=== PATIENT | male | born 1950 | race African-American/Black ===

== ENCOUNTER 2017-07-24 08:04 | Inpatient (IN) | payer OTHER ==
[2017-07-17 18:35] VITALS: BMI 28.5
[2017-07-24] MEDS ORDERED: CELECOXIB 200 MG CAPSULE PO ONE (09:12)
[2017-07-24] MEDS ORDERED: VANCOMYCIN 1,000 MG in DEXTROSE 5%-WATER - 250 ML IVPB ONE (09:12)
[2017-07-24] MEDS ORDERED: CEFAZOLIN 2 GM in DEXTROSE 5%-WATER - 50 ML IVPB ONE (09:12)
[2017-07-24] MEDS ORDERED: BUPIVACAINE HCL/PF (5 MG/ML) 30 ML VIAL IJ ONE (09:26)
[2017-07-24] MEDS ORDERED: MIDAZOLAM HCL 2 MG/2 ML SINGLE DOSE VIAL ONE ×2 (09:26→09:58)
[2017-07-24] MEDS ORDERED: CELECOXIB 200 MG CAPSULE ONE (09:44)
[2017-07-24] MEDS: CELECOXIB 200 MG CAPSULE PO ONE (09:50)
[2017-07-24] MEDS ORDERED: PROPOFOL 20 ML ONE ×3 (09:58)
[2017-07-24] MEDS ORDERED: fentaNYL CITRATE 250 MCG/5 ML VIAL ONE (10:39)
[2017-07-24] MEDS ORDERED: SUCCINYLCHOLINE CHLORIDE 200 MG/10 ML VIAL ONE (10:40)
[2017-07-24] MEDS ORDERED: ROCURONIUM BROMIDE 50 MG/5 ML VIAL ONE (10:40)
[2017-07-24] MEDS ORDERED: ePHEDrine SULFATE 50 MG/1 ML AMPULE ONE ×2 (11:08→12:22)
[2017-07-24] MEDS ORDERED: DEXAMETHASONE SOD PHOSPHATE 4 MG/1 ML VIAL ONE (11:09)
[2017-07-24] MEDS ORDERED: ceFAZolin SODIUM 1 GM VIAL ONE ×2 (11:09→12:32)
[2017-07-24] MEDS ORDERED: VANCOMYCIN 1,000 MG VIAL (RESTRICTED TO ID ONLY) ONE (11:09)
[2017-07-24] MEDS ORDERED: ONDANSETRON 4 MG/2 ML VIAL ONE (11:09)
[2017-07-24] MEDS ORDERED: LIDOCAINE HCL/PF 2% SDV 5ML VIAL ONE (11:09)
[2017-07-24] MEDS ORDERED: SODIUM CHLORIDE 0.9% P/F 10 ML VIAL IJ ONE (12:32)
[2017-07-24] MEDS ORDERED: BENZOIN/ALOE VERA/STORAX/TOLU 58 ML BOTTLE ONE (13:11)
--- NOTE | 2017-07-24 13:25 | OP ---
Operative Note - Note: Operative Date: 07/24/17 Pre-Operative Diagnosis: Left hip DJD Operation: Left DRAKE Implants: Nancy. Cup - Tritanium, 62mm, cluster hole; 2 x acetabular screws ( 25mm). Poly - 28mm, neutral. Stem - Secure Fit Advanced, #7, 127 deg NSA ( high offset). Head - Biolox/Delta Ceramic 28mm, +4 Post-Operative Diagnosis: Same as Pre-op Surgeon: Lalit Alcantara [employer] Technician: Jericho Alcantara Anesthesiologist/ACADEMIC DIRECTOR: Alphonse Arreguin Anesthesia: Spinal Specimens Removed: Left femoral head Estimated Blood Loss (mls): 150 Drains & Tubes with Location: 1 x superficial HemoVac Fluid Volume Replaced (mls): 1,000 Operative Report Dictated: Yes
--- NOTE | 2017-07-24 13:29 | PN ---
Progress Note (short form) - Note Progress Note: 67M s/p L DRAKE POD #0. -Pain control. -DVT PPx: -Chemical: ASA 81mg PO BID x 6 weeks. -Mechanical: HE's, SCD's. -Incentive spirometry. -PT/OT/Rehab, OOB. -WBAT LLE. -Posterior L hip precautions. -f/u drain output. -f/u AM labs. -f/u post-op TOV. -Hip abduction pillow. -Care per medical hospitalist team. -Discharge planning: f/u [facility] office 08/01/2017. Call for appointment: . -Will follow. Lalit Alcantara MD (Orthopaedic Surgery).
[2017-07-24] MEDS ORDERED: MAGNESIUM HYDROX 2400MG/30ML ORAL SUSPENSION 30 ML CUP PO PRN (13:31)
[2017-07-24] MEDS ORDERED: MAG HYDROX/AL HYDROX/SIMETH 30 ML UNIT-DOSE CUP PO PRN (13:31)
[2017-07-24] MEDS ORDERED: ONDANSETRON 4 MG/2 ML VIAL IVPUSH PRN ×2 (13:31→13:55)
[2017-07-24] MEDS ORDERED: LACTATED RINGERS SOLUTION 1,000 ML IV SCH (13:45)
[2017-07-24] MEDS ORDERED: PROMETHAZINE HCL 25 MG/1 ML VIAL IVPB PRN (13:55)
[2017-07-24] MEDS ORDERED: oxyCODONE HCL 5 MG TABLET PO PRN (13:55)
[2017-07-24] MEDS ORDERED: DOMPERIDONE PO SCH (14:00)
[2017-07-24] MEDS: ACETAMINOPHEN 325 MG TABLET (FP) PO SCH ×2 (15:10→20:00)
[2017-07-24] MEDS: oxyCODONE HCL 5 MG TABLET PO PRN ×2 (18:30→21:35)
--- NOTE | 2017-07-24 19:25 | OP ---
DATE OF OPERATION: 07/24/2017 PREOPERATIVE DIAGNOSIS: Osteoarthritis left hip with fixed direction deformity and retroverted pelvis. POSTOPERATIVE DIAGNOSIS: Osteoarthritis left hip with fixed direction deformity and retroverted pelvis. OPERATION PERFORMED: Left total hip replacement. SURGEON: Lalit Alcantara M.D. COLD PRESS LOADER: Jericho Alcantara M.D., and Rubens Barrera ANESTHESIA: General with antibiotics: 2 g Kefzol, 1 g vancomycin; 1 g Kefzol given at the time of seating of the femoral component. BLOOD LOSS: Approximately 300 mL. OPERATION IN DETAIL: With the patient in the supine position, the left lower extremity was prepped, predraped in the routine manner with Betadine scrub solution. A timeout was called. Imaging was available for intraoperative evaluation. The hip was opened with the routine lateral incision extended over greater trochanter, lining up to a line vertically drawn from the anterior superior spine to about 3 inches distal to the trochanteric ridge. The fascia was opened. Charnley retractors were placed subfascially, hemostasis achieved along the way. Using an anterior biased direct lateral approach, about 2 cm of the anterior fibers of the gluteus medius were split and lifted off the anterior aspect of the trochanter toward the capsule. The capsule was incised from superolateral to inferomedially, 2 radial incisions made in the anterior capsule, and then I elected to excise the anterior capsule, because of its original contracture. A very contracted external rotators as well as Psoas major tendon were all released. This achieved an improvement for the significant fixed direction deformity which measured approximately 30 degrees under general anesthesia. The acetabulum was exposed with an anterior, posterior, inferior and superior retractor. The labrum was resected. Reaming was to size 61, and a size 62 Tritanium cup was inserted. It must be noted that the seating of the cup was inserted in accord with the vertical sagittal axis. The retroverted patella meant that the acetabulum was markedly anteverted, and the seating of the cup necessitated resection of the posterior aspect of the bone bed of the cup toward the cartilaginous notch, and to the level of the obturator foramen. The cup was Press-Fit was solid, but we elected to seat 2 screws for additional fixation. The cup liner was a 28-mm polyethylene liner. The cup was placed in about 5 degrees of anteversion and closed. Once this had been achieved, the hip was abducted, externally rotated. The hip abductor was held out of harm's way by seating a sharp Jesus between the trochanter and the muscle. The box cut was utilized to gain entry to the trochanter. The trochanter was using this entry point. The intramedullary canal was opened using the canal finder. Broaching was then performed to size 7 and the size 7 secure fit advanced 127-degree femoral component inserted ([place]), and a 28-mm plus 4 ceramic head applied to the trunnion, this gave equal leg length on the table, and marked improvement in the fixed direction deformity and the articulation. The wounds were thoroughly lavaged with pulse lavage. Closure was as follows. Hip abductor muscle with number 1 Vicryl, fascia 1 Vicryl, subcutaneous 1 and 2-0 Vicryl, skin 3-0 Monocryl, Steri-Strips, one 8-inch Hemovac drain inserted. This completed a 25- cm complex wound closure because of the 4 layers. No complications. Postoperative x-rays were excellent. MD MAIKEL Joyce/[id number] RUBEN
[2017-07-24] MEDS ORDERED: ASPIRIN 81 MG CHEWABLE TABLETS ONE (21:14)
[2017-07-24] MEDS: SENNOSIDES/DOCUSATE COMBO (SENNA PLUS) TABLET (UD) PO SCH (21:19)
[2017-07-24] MEDS: ASPIRIN 325 MG TABLET PO SCH (21:19)
[2017-07-24] MEDS: CEFAZOLIN 2 GM/D5W 2 GM/50 ML ML IVPB SCH (21:20)
[2017-07-24] MEDS: oxyCODONE HCL 10 MG SUSTAINED ACTING TABLET PO SCH (21:20)
[2017-07-24] MEDS: GABAPENTIN 300 MG CAPSULE (FP) PO SCH (21:20)
[2017-07-24] MEDS: BACLOFEN 10 MG TABLET (FP) PO SCH (21:20)
[2017-07-24] MEDS: clonazePAM 2 MG TABLET PO SCH (21:20)
[2017-07-24] MEDS ORDERED: PREGABALIN 50 MG CAPSULE PO SCH (22:00)
[2017-07-25] MEDS: ACETAMINOPHEN 325 MG TABLET (FP) PO SCH ×4 (02:00→21:33)
[2017-07-25] MEDS: CEFAZOLIN 2 GM/D5W 2 GM/50 ML ML IVPB SCH (05:25)
[2017-07-25] MEDS: oxyCODONE HCL 5 MG TABLET PO PRN ×4 (05:25→21:33)
[2017-07-25] MEDS: LEVOTHYROXINE NA 50 MCG TABLET (FP) PO SCH (06:09)
[2017-07-25] MEDS: CELECOXIB 200 MG CAPSULE PO ONE (07:47)
[2017-07-25 08:25] LABS: HEMOGLOBIN 10.3 GM/dl (11.7-16.9); MCH 30.2 pg (25.7-33.7); MCHC 33.2 g/dl (32.0-35.9); MEAN PLT VOLUME 8.1 fl (7.5-11.1); PLATELET COUNT 235 K/MM3 (134-434); RDW 13.8 % (11.9-15.9); WHITE BLOOD COUNT 5.9 K/mm3 (4.0-10.8)
[2017-07-25 08:30] LABS: ANION GAP 7 (8-16); BLOOD UREA NITROGEN 11 mg/dl (7-18); CALCIUM 8.2 mg/dl (8.4-10.2); CHLORIDE 103 mmol/L (98-107); CO2 28 mmol/L (22-28); CREATININE 0.8 mg/dl (0.6-1.3); GLUCOSE,RANDOM 111 mg/dl (74-106); POTASSIUM 4.3 mmol/L (3.5-5.1); SODIUM 138 mmol/L (136-145)
[2017-07-25] MEDS: TAMSULOSIN HCL 0.4 MG CAP.ER.24H (FP) PO SCH (09:21)
[2017-07-25] MEDS: clonazePAM 2 MG TABLET PO SCH ×2 (09:22→21:34)
[2017-07-25] MEDS: BACLOFEN 10 MG TABLET (FP) PO SCH ×2 (09:23→21:34)
[2017-07-25] MEDS: GABAPENTIN 300 MG CAPSULE (FP) PO SCH ×2 (09:25→21:34)
[2017-07-25] MEDS: oxyCODONE HCL 10 MG SUSTAINED ACTING TABLET PO SCH ×2 (09:25→21:33)
[2017-07-25] MEDS: SENNOSIDES/DOCUSATE COMBO (SENNA PLUS) TABLET (UD) PO SCH ×2 (09:26→21:34)
[2017-07-25] MEDS: PANTOPRAZOLE 40 MG TABLET (FP) PO SCH (09:27)
[2017-07-25] MEDS: LISINOPRIL 10 MG TABLET (FP) PO SCH (09:27)
[2017-07-25] MEDS: ASPIRIN 325 MG TABLET PO SCH ×2 (09:30→21:34)
[2017-07-25] MEDS ORDERED: PATIENT'S OWN MEDICATION (NON-FORMULARY) (Dexlansoprazole [Dexilant] 60 MG) PO SCH (10:00)
[2017-07-25] MEDS ORDERED: PATIENT'S OWN MEDICATION (NON-FORMULARY) (Linaclotide [Linzess] 290 MCG) PO SCH (10:00)
--- NOTE | 2017-07-25 10:39 | CONSULT ---
Consultation: REQUESTING PROVIDER: Dr Alcantara CONSULT REQUEST: We have been asked to medically evaluate this patient for medical management. HISTORY OF PRESENT ILLNESS:patient is a 67-year-old male, with a past medical history of BPH, irritable syndrome, pulmonary embolism (IVC filter), osteoarthritis, hypothyroidism, hypertension, GERD, depression, anxiety, and chronic back pain. Patient is status post left total hip replacement general anesthesia Dr. Alcantara REVIEW OF SYSTEMS: CONSTITUTIONAL: Absent: fever, chills, diaphoresis, generalized weakness, malaise, loss of appetite, weight change HEENT: Absent: rhinorrhea, nasal congestion, throat pain, throat swelling, difficulty swallowing, mouth swelling, ear pain, eye pain, visual changes CARDIOVASCULAR: Absent: chest pain, syncope, palpitations, irregular heart rate, lightheadedness , peripheral edema RESPIRATORY: Absent: cough, shortness of breath, dyspnea with exertion, orthopnea, wheezing, stridor, hemoptysis GASTROINTESTINAL: Absent: abdominal pain, abdominal distension, nausea, vomiting, diarrhea, constipation, melena, hematochezia GENITOURINARY: Absent: dysuria, frequency, urgency, hesitancy, hematuria, flank pain, genital pain MUSCULOSKELETAL: Present: left hip pain Absent: myalgia, arthralgia, joint swelling, back pain, neck pain SKIN: Absent: rash, itching, pallor HEMATOLOGIC/IMMUNOLOGIC: Absent: easy bleeding, easy bruising, lymphadenopathy, frequent infections ENDOCRINE: Absent: unexplained weight gain, unexplained weight loss, heat intolerance, cold intolerance NEUROLOGIC: Absent: headache, focal weakness or paresthesias, dizziness, unsteady gait, seizure, mental status changes, bladder or bowel incontinence PSYCHIATRIC: Absent: anxiety, depression, suicidal or homicidal ideation, hallucinations. PHYSICAL EXAMINATION Vital Signs - 24 hr 07/24/17 07/24/17 07/24/17 13:49 13:55 14:00 Temperature 98.1 F Pulse Rate 107 H 92 H 86 Respiratory 16 18 18 Rate Blood Pressure 126/93 126/72 121/66 O2 Sat by Pulse 98 98 9 L Oximetry (%) 07/24/17 07/24/17 07/24/17 14:05 14:20 14:35 Temperature Pulse Rate 86 80 70 Respiratory 20 20 20 Rate Blood Pressure 120/71 129/64 127/60 O2 Sat by Pulse 98 97 99 Oximetry (%) 05/07/24/17 07/24/17 14:50 15:05 20:31 Temperature Pulse Rate 73 77 Respiratory 20 20 20 Rate Blood Pressure 121/63 119/60 O2 Sat by Pulse 98 98 Oximetry (%) 07/24/17 07/25/17 07/25/17 21:45 06:20 08:18 Temperature 98.5 F 97.9 F Pulse Rate 82 71 Respiratory 17 18 Rate Blood Pressure 120/68 132/71 O2 Sat by Pulse 100 99 99 Oximetry (%) GENERAL: Awake, alert, and fully oriented, in no acute distress. HEAD: Normal with no signs of trauma. EYES: Pupils equal, round and reactive to light, extraocular movements intact, sclera anicteric, conjunctiva clear. No lid lag. EARS, NOSE, THROAT: Ears normal, nares patent, oropharynx clear without exudates. Moist mucous membranes. NECK: Normal range of motion, supple without lymphadenopathy, JVD, or masses. LUNGS: Breath sounds equal, clear to auscultation bilaterally. No wheezes, and no crackles. No accessory muscle use. HEART: Regular rate and rhythm, normal S1 and S2 without murmur, rub or gallop. ABDOMEN: Soft, nontender, not distended, normoactive bowel sounds, no guarding, no rebound, no masses. No hepatomegaly or splenomegaly. : Mckeon draining clear yellow urine MUSCULOSKELETAL: Normal range of motion at all joints. No bony deformities or tenderness. No CVA tenderness. UPPER EXTREMITIES: 2+ pulses, warm, well-perfused. No cyanosis. No clubbing. Cap refill <2 seconds. No peripheral edema. LOWER EXTREMITIES: 2+ pulses, warm, well-perfused. No calf tenderness. No peripheral edema. LEFT LOWER EXTREMITY: dressing CDI, less than 3 second capillary refill +3 pedal pulse SCDs/Jaquan's intact, Hemovac draining scant sanguinous drainage NEUROLOGICAL: Cranial nerves II-XII intact. Normal speech. Normal gait. PSYCHIATRIC: Cooperative. Good eye contact. Appropriate mood and affect. SKIN: Warm, dry, normal turgor, no rashes or lesions noted. Laboratory Results - last 24 hr 07/25/17 07/25/17 07:25 07:25 WBC 5.9 RBC 3.40 L Hgb 10.3 L Hct 31.0 L MCV 91.0 MCH 30.2 MCHC 33.2 RDW 13.8 Plt Count 235 MPV 8.1 Sodium 138 Potassium 4.3 Chloride 103 Carbon Dioxide 28 Anion Gap 7 L BUN 11 Creatinine 0.8 Random Glucose 111 H Calcium 8.2 L Active Medications Generic Name Dose Route Start Last Admin Trade Name Freq PRN Reason Stop Dose Admin Acetaminophen 650 mg 07/24/17 14:00 07/25/17 09:21 Tylenol - PO 07/27/17 13:59 Not Given Q6H RADHA Al Hydroxide/Mg Hydroxide 30 ml 07/24/17 13:31 Mylanta Oral Suspension - PO Q4H PRN DYSPEPSIA Aspirin 81 mg 07/24/17 22:00 07/25/17 09:30 Asa - PO 81 mg BID RADHA Administration Baclofen 10 mg 07/24/17 22:00 07/25/17 09:23 Lioresal - PO 10 mg BID RADHA Administration Clonazepam 2 mg 07/24/17 22:00 07/25/17 09:22 Klonopin - PO 1 mg BID RADHA Administration Fentanyl 50 mcg 07/24/17 13:55 07/24/17 14:15 Sublimaze Injection - IVPUSH 50 mcg [id number] PRN Administration PAIN-PACU ORDER X 4 DOSES ONLY Gabapentin 300 mg 07/24/17 22:00 07/25/17 09:25 Neurontin - PO Not Given BID [facility] Levothyroxine Sodium 50 mcg 07/25/17 07:00 07/25/17 06:09 Synthroid - PO 50 mcg AM RADHA Administration Lisinopril 10 mg 07/25/17 10:00 07/25/17 09:27 Prinivil PO 10 mg DAILY RADHA Administration Magnesium Hydroxide 30 ml 07/24/17 13:31 Milk Of Magnesia - PO PRN PRN CONSTIPATION Non-Formulary Medication 60 mg 07/25/17 10:00 Dexlansoprazole [Dexilant] PO DAILY RAHDA Non-Formulary Medication 2 mg 07/24/17 14:00 Domperidone PO TID RADHA Non-Formulary Medication 290 mcg 07/25/17 10:00 Linaclotide [Linzess] PO DAILY RADHA Non-Formulary Medication 150 mg 07/24/17 14:00 Methylnaltrexone Phillips [Relistor] PO TID RADHA Ondansetron HCl 4 mg 07/24/17 13:31 Zofran Injection IVPUSH Q6H PRN NAUSEA Ondansetron HCl 4 mg 07/24/17 13:55 07/24/17 14:20 Zofran Injection IVPUSH 4 mg Q6H PRN Administration NAUSEA AND/OR VOMITING Oxycodone HCl 5 mg 07/24/17 13:55 07/24/17 15:10 Roxicodone - PO 5 mg Q3H PRN Administration PAIN LEVEL 1-5 Oxycodone HCl 10 mg 07/24/17 13:55 07/25/17 09:28 Roxicodone - PO 10 mg Q3H PRN Administration PAIN LEVEL 6-10 Oxycodone HCl 10 mg 07/24/17 22:00 07/25/17 09:25 Oxycontin - PO 07/27/17 13:56 10 mg BID RADHA Administration Pantoprazole Sodium 40 mg 07/25/17 10:00 07/25/17 09:27 Protonix - PO 40 mg DAILY RADHA Administration Pregabalin 50 mg 07/24/17 22:00 Lyrica - PO BID RADHA Promethazine HCl 12.5 mg 07/24/17 13:55 Phenergan Injection - IVPB Q6H PRN NAUSEA-FOR RESCUE AFTER 15 MIN Senna/Docusate Sodium 1 tablet 07/24/17 22:00 07/25/17 09:26 Pericolace - PO Not Given BID RADHA Tamsulosin HCl 0.4 mg 07/25/17 08:30 07/25/17 09:21 Flomax - PO 0.4 mg DAILY@0830 RADHA Administration ASSESSMENT/PLAN: 1) MS S/P left total hip replacement, Postoperative day 1 - Physical therapy as per orthopedist Dr. Alcantara - When necessary pain medication - Strict monitoring of hemoglobin 2) cardiovascular hypertension - [id number]/06/2018 no evidence of reversible myocardial ischemia noted - no home medications close monitoring of blood pressure advise every 4 hours 3) BPH - Patient reports he was evaluated by urologist preoperatively PSA is WNL as per patient,patient reports a history of urinary retention in the past after surgery, advise discontinuing Mckoen starting voiding trial - continue flomax 4) endo hypothyroidism - continue levothyroxine home dose 5) gI IBS - continue linzess (pt to bring in home medication) Dispo: We will continue to follow the patient. Thank you for this consultative opportunity. Visit type - Emergency Visit Emergency Visit: No - New Patient This patient is new to me today: Yes Date on this admission: 07/25/17 - Critical Care Critical Care patient: No
--- NOTE | 2017-07-25 10:55 | PN ---
Progress Note, Physician Chief Complaint: s/o left hip arthorplasty under general anesthesia post op day one. History of Present Illness: paravertebral nerve block for post op pain - Current Medication List Current Medications: Active Medications Acetaminophen (Tylenol -) 650 mg PO Q6H [facility] Stop: 07/27/17 13:59 Last Admin: 07/25/17 09:21 Dose: Not Given Al Hydroxide/Mg Hydroxide (Mylanta Oral Suspension -) 30 ml PO Q4H PRN PRN Reason: DYSPEPSIA Aspirin (Asa -) 81 mg PO BID [facility] Last Admin: 07/25/17 09:30 Dose: 81 mg Baclofen (Lioresal -) 10 mg PO BID [facility] Last Admin: 07/25/17 09:23 Dose: 10 mg Clonazepam (Klonopin -) 2 mg PO BID [facility] Last Admin: 07/25/17 09:22 Dose: 1 mg Fentanyl (Sublimaze Injection -) 50 mcg IVPUSH [id number] PRN PRN Reason: PAIN-PACU ORDER X 4 DOSES ONLY Last Admin: 07/24/17 14:15 Dose: 50 mcg Gabapentin (Neurontin -) 300 mg PO BID [facility] Last Admin: 07/25/17 09:25 Dose: Not Given Levothyroxine Sodium (Synthroid -) 50 mcg PO AM [facility] Last Admin: 07/25/17 06:09 Dose: 50 mcg Lisinopril (Prinivil) 10 mg PO DAILY [facility] Last Admin: 07/25/17 09:27 Dose: 10 mg Magnesium Hydroxide (Milk Of Magnesia -) 30 ml PO PRN PRN PRN Reason: CONSTIPATION Non-Formulary Medication (Dexlansoprazole [Dexilant]) 60 mg PO DAILY [facility] Non-Formulary Medication (Domperidone) 2 mg PO TID [facility] Non-Formulary Medication (Linaclotide [Linzess]) 290 mcg PO DAILY [facility] Non-Formulary Medication (Methylnaltrexone [place] [Relistor]) 150 mg PO TID [facility] Ondansetron HCl (Zofran Injection) 4 mg IVPUSH Q6H PRN PRN Reason: NAUSEA Ondansetron HCl (Zofran Injection) 4 mg IVPUSH Q6H PRN PRN Reason: NAUSEA AND/OR VOMITING Last Admin: 07/24/17 14:20 Dose: 4 mg Oxycodone HCl (Roxicodone -) 5 mg PO Q3H PRN PRN Reason: PAIN LEVEL 1-5 Last Admin: 07/24/17 15:10 Dose: 5 mg Oxycodone HCl (Roxicodone -) 10 mg PO Q3H PRN PRN Reason: PAIN LEVEL 6-10 Last Admin: 07/25/17 09:28 Dose: 10 mg Oxycodone HCl (Oxycontin -) 10 mg PO BID [facility] Stop: 07/27/17 13:56 Last Admin: 07/25/17 09:25 Dose: 10 mg Pantoprazole Sodium (Protonix -) 40 mg PO DAILY [facility] Last Admin: 07/25/17 09:27 Dose: 40 mg Pregabalin (Lyrica -) 50 mg PO BID [facility] Promethazine HCl (Phenergan Injection -) 12.5 mg IVPB Q6H PRN PRN Reason: NAUSEA-FOR RESCUE AFTER 15 MIN Senna/Docusate Sodium (Pericolace -) 1 tablet PO BID [facility] Last Admin: 07/25/17 09:26 Dose: Not Given Tamsulosin HCl (Flomax -) 0.4 mg PO DAILY@0830 [facility] Last Admin: 07/25/17 09:21 Dose: 0.4 mg - Objective Vital Signs: Vital Signs Temperature 97.9 F 07/25/17 06:20 Pulse Rate 71 07/25/17 06:20 Respiratory Rate 18 07/25/17 06:20 Blood Pressure 132/71 07/25/17 06:20 O2 Sat by Pulse Oximetry (%) 99 07/25/17 08:18 Constitutional: Yes: Well Nourished Cardiovascular: Yes: WNL Respiratory: Yes: WNL Gastrointestinal: Yes: WNL Labs: CBC, BMP 07/25/17 07:25 07/25/17 07:25 Assessment/Plan Patient was in pain during physical therapy, received oral analgesics, no nausea or vomiting, no complaints about anesthesia. Advised patient to ask for pain medication early to mitigate escalating pain. Dept of anesthesia will sign off care at this time.
--- NOTE | 2017-07-25 17:51 | PN ---
Progress Note (short form) - Note Progress Note: POD#1 Pt without complaints this am, oob to chair. No CP/SOB. Vital Signs Period Temp Pulse Resp BP Sys/Brar Pulse Ox Last 24 Hr 97.9 F-98.5 F 71-82 17-20 120-136/64-71 97-100 [id number] Mckeon-clear/yellow urine-1300ml GEN: A&0x3, NAD CV: RRR Lungs:CTA b/l anteriorly Left hip: dressing c/d/i LE: b/l +2 dp pulse, dorsi/plantar flexion 5/5. CBC, BMP // 07:25 05//18 07:25 A/p: 67 yo male s/p left THR, POD#1 Plan for oob to chair/ambulate with PT Mckeon to be removed for TOV Diet as tolerated DVT ppx with SCDs/aspirin 81 mg BID D/w Dr. Alcantara
[2017-07-25] MEDS ORDERED: ASPIRIN 81 MG CHEWABLE TABLETS ONE (21:24)
[2017-07-25] MEDS: PREGABALIN 50 MG CAPSULE PO SCH (21:34)
[2017-07-26] MEDS: oxyCODONE HCL 5 MG TABLET PO PRN ×3 (00:20→12:48)
[2017-07-26] MEDS: ACETAMINOPHEN 325 MG TABLET (FP) PO SCH ×3 (04:51→14:43)
[2017-07-26] MEDS: LEVOTHYROXINE NA 50 MCG TABLET (FP) PO SCH (05:59)
[2017-07-26] MEDS: TAMSULOSIN HCL 0.4 MG CAP.ER.24H (FP) PO SCH (08:45)
[2017-07-26] MEDS ORDERED: PT OWN MED DRAWER 7, Y5N ONE (09:45)
[2017-07-26] MEDS: BACLOFEN 10 MG TABLET (FP) PO SCH (09:48)
[2017-07-26] MEDS: oxyCODONE HCL 10 MG SUSTAINED ACTING TABLET PO SCH (09:48)
[2017-07-26] MEDS: ASPIRIN 325 MG TABLET PO SCH (09:49)
[2017-07-26] MEDS: clonazePAM 2 MG TABLET PO SCH (09:49)
[2017-07-26] MEDS: LISINOPRIL 10 MG TABLET (FP) PO SCH (09:50)
[2017-07-26] MEDS: PREGABALIN 50 MG CAPSULE PO SCH (09:50)
[2017-07-26] MEDS: SENNOSIDES/DOCUSATE COMBO (SENNA PLUS) TABLET (UD) PO SCH (09:50)
[2017-07-26] MEDS: GABAPENTIN 300 MG CAPSULE (FP) PO SCH (09:50)
[2017-07-26 09:51] LABS: HEMATOCRIT 29.1 % (35.4-49); HEMOGLOBIN 9.7 GM/dl (11.7-16.9); MCH 29.9 pg (25.7-33.7); MCHC 33.3 g/dl (32.0-35.9); MEAN CELL VOLUME 89.7 fl (80-96); MEAN PLT VOLUME 8.9 fl (7.5-11.1); PLATELET COUNT 222 K/MM3 (134-434); RBC 3.24 M/mm3 (4.00-5.60); RDW 13.6 % (11.9-15.9); WHITE BLOOD COUNT 11.5 K/mm3 (4.0-10.8)
[2017-07-26] MEDS: PANTOPRAZOLE 40 MG TABLET (FP) PO SCH (09:51)
[2017-07-26] MEDS ORDERED: METHYLNALTREXONE BROMIDE 450 MG PO SCH (10:00)
[2017-07-26 14:17] VITALS: BP 112/52; PULSE 84; TEMP 98.4
--- NOTE | 2017-07-26 17:24 | PATH ---
Surgical Pathology Report Patient Name: NICK BYRNES Med. Rec. #: [id number] /Age/Gender: 1950 (Age: 67) / M Account: [id number] Location: [facility] MED-SURG Taken: 07/24/2017 Received: 07/24/2017 Reported: 07/26/2017 Physicians: Lalit Alcantara M.D. Specimen(s) Received LEFT FEMORAL HEAD Clinical History Left hip osteoarthritis Final Diagnosis BONE, FEMORAL HEAD, LEFT, ARTHROPLASTY: BONE WITH DEGENERATIVE JOINT DISEASE. Electronically Signed Arely Wilkerson M.D. Gross Description Received in formalin, labeled "left femoral head," is a 5.3 x 5.3 x 5.0 cm. femoral head with a 2 cm in length portion of femoral neck attached. The margin of resection is smooth. No areas of eburnation are identified. The articular surface is vieyra-yellow and focally granular. The underlying trabecular bone is yellow and hard. A business representative section is submitted in one cassette, following decalcification. 07/25/2017 [facility]07/25/2017
--- NOTE | 2017-07-26 17:50 | DS ---
"Physical Exam: SUBJECTIVE: Patient seen and examined. He is walking with PT. Has mild pain with ambulation. Drain pulled today. OBJECTIVE: Vital Signs Period Temp Pulse Resp BP Sys/Brar Pulse Ox Last 24 Hr 98.2 F-98.4 F 84-85 18-18 112-163/45-52 94-100 PE Neuro: alert, awake, cn 2-12intact Pulm: CTAB CV: s1 s2 rrr no mrg Abd: s nt nd +bs Ext: warm, L hip dressing, mild drainage post drain pull Laboratory Results - last 24 hr 07/26/17 08:25 WBC 11.5 H D RBC 3.24 L Hgb 9.7 L Hct 29.1 L MCV 89.7 MCH 29.9 MCHC 33.3 RDW 13.6 Plt Count 222 MPV 8.9 HOSPITAL COURSE: Date of Admission:07/24/17 Date of Discharge: 07/26/17 Minutes to complete discharge: 37 Discharge Summary Hospital Course: Hospital Course: Briefly, 67 year old male with pmhx BPH, irritable syndrome, pulmonary embolism (IVC filter), osteoarthritis, hypothyroidism, hypertension, GERD, depression, anxiety, and chronic back pain admitted status post left total hip replacement 07/24. Subsequent Hospital Course/ DC summary: Plan: 1. S/P left total hip replacement, - Ambulating with PT daily w walker - Outpt appt with Ortho next week - ASA BID x6 weeks 2. HTN - Lisinopril 10mg daily 3. BPH - continue flomax 4. Hypothyroidism - Synthroid 50mcg daily 5. IBS - continue linzess (pt to bring in home medication) Dispo: - Home w/ above meds and follow up Condition: Stable - Instructions Diet, Activity, Other Instructions: This report was requested by: Aileen Bradford | Reference #: [id number] 07/05/2017 07/05/2017 clonazepam 2 mg tablet 60 30 Lalit Alcantara MS, MD 07/05/2017 07/05/2017 oxycodone hcl 30 mg tablet 120 30 Lalit Alcantara MS, MD Post-op instructions: Keep the dressing on until removed by Dr. Alcantara next week. No baths. You have a follow up appointment on 08/01, Call the to verify your appointment time [phone] Take one Aspirin 81mg every 12 hours for the next 6 weeks to prevent blood clots in your legs. Posterior Hip Precautions: Do not cross legs, Do not sit on low chair or toilets Referrals: Jericho Alcantara MD [Staff Physician] - Disposition: VNS/HOME HEALTH CARE - Home Medications Comprehensive Discharge Medication List: Ambulatory Orders Baclofen 10 mg PO BID 07/17/17 Bisacodyl [Dulcolax] 15 mg PO DAILY 07/17/17 Clonazepam [Klonopin] 2 mg PO BID 07/17/17 Dexlansoprazole [Dexilant] 60 mg PO DAILY 07/17/17 Domperidone 2 mg PO TID 07/17/17 Gabapentin [Neurontin] 600 mg PO TID 07/17/17 Levothyroxine [Synthroid -] 50 mcg PO DAILY 07/17/17 Linaclotide [Linzess] 290 mcg PO DAILY 07/17/17 Lisinopril 10 mg PO DAILY 07/17/17 Methylnaltrexone Gates [Relistor] 150 mg PO TID 07/17/17 Oxycodone HCl 30 mg PO TID 07/17/17 Pregabalin [Lyrica -] 50 mg PO BID 07/17/17 Tamsulosin HCl 0.4 mg PO DAILY 07/17/17 Aspirin [ASA -] 81 mg PO BID #90 tab.chew 07/26/17 This patient is new to me today: Yes Date on this admission: 07/26/17 Emergency Visit: Yes ED Registration Date: 07/24/17 Care time: The patient presented to the Emergency Department on the above date and was hospitalized for further evaluation of their emergent condition. Critical Care patient: No - Discharge Referral Referred to [facility] Med P.C.: No"
== END 2017-07-26 15:00 | disposition home health service (06) | DRG 470 ==
LOC: FM/S 08:04
PROVIDERS: ADMIT Orthopaedic Surgery Orthopaedic Surgery of the Spine; ATTEND Orthopaedic Surgery Orthopaedic Surgery of the Spine
PROC: 0SRB03A Replacement of Left Hip Joint with Ceramic Synthetic Substitute, Uncemented, Open Approach (ICD-10-PCS; principal; 2017-07-24 10:15)
DX: M16.12 Unilateral primary osteoarthritis, left hip (principal); N40.0 Benign prostatic hyperplasia without lower urinary tract symptoms; E03.9 Hypothyroidism, unspecified; I10 Essential (primary) hypertension; K21.9 Gastro-esophageal reflux disease without esophagitis; K58.9 Irritable bowel syndrome, unspecified
CPT/HCPCS: 36415; 73502-TC-LT-FY; 80048; 85027; 88304-TC; 88311-TC; 94760; 97116-GP; 97162-GP; J0475

== ENCOUNTER 2017-12-25 08:26 | Inpatient (IN) | payer OTHER ==
[2017-12-18 13:52] VITALS: BMI 24.6
[2017-12-25] MEDS ORDERED: ONDANSETRON 4 MG/2 ML VIAL ONE (09:14)
[2017-12-25] MEDS ORDERED: DEXAMETHASONE SOD PHOSPHATE 4 MG/1 ML VIAL ONE (09:14)
[2017-12-25] MEDS ORDERED: SODIUM CHLORIDE 0.9% P/F 10 ML VIAL IJ ONE ×2 (09:14→09:56)
[2017-12-25] MEDS ORDERED: ceFAZolin SODIUM 1 GM VIAL ONE (09:14)
[2017-12-25] MEDS ORDERED: PROPOFOL 20 ML ONE ×4 (09:18→15:02)
[2017-12-25] MEDS ORDERED: MIDAZOLAM HCL 2 MG/2 ML SINGLE DOSE VIAL ONE ×3 (09:20→11:05)
[2017-12-25] MEDS ORDERED: BUPIVACAINE HCL/PF (5 MG/ML) 30 ML VIAL IJ ONE (09:51)
[2017-12-25] MEDS ORDERED: DEXAMETHASONE SOD PHOSPHATE/PF 10 MG/ML SDV ONE (09:51)
[2017-12-25] MEDS ORDERED: LIDOCAINE 1% P/F 10 MG/ML VIAL ONE (09:52)
[2017-12-25] MEDS ORDERED: EPINEPHrine/PF 1 MG/1 ML (1:1,000) AMPULE ONE (09:55)
[2017-12-25] MEDS ORDERED: KETOROLAC TROMETHAMINE 60 MG/2 ML VIAL ONE (09:55)
[2017-12-25] MEDS ORDERED: BUPIVACAINE HCL/PF 2.5 MG/ML - 30 ML VIAL IJ ONE (09:56)
[2017-12-25] MEDS ORDERED: morphine CARPU-JECT 10 MG/1 ML DISP.SYRIN ONE ×2 (09:56→14:19)
[2017-12-25] MEDS ORDERED: HEPARIN NA (PORCINE) 5,000 UNITS/ML 1ML VIAL ONE (10:09)
[2017-12-25] MEDS ORDERED: DEXMEDETOMIDINE HCL 200 MCG/2 ML ML IVPB ONE ×2 (10:50→14:18)
[2017-12-25] MEDS ORDERED: LIDOCAINE HCL/PF 2% SDV 5ML VIAL ONE (11:07)
[2017-12-25] MEDS ORDERED: ROCURONIUM BROMIDE 50 MG/5 ML VIAL ONE (11:07)
[2017-12-25] MEDS ORDERED: VANCOMYCIN 1 GRAM (PRE-DOCKED) 1,000 MG/250 ML BAG IVPB ONE (11:49)
[2017-12-25] MEDS ORDERED: CEFAZOLIN 2 GM/D5W 2 GM/50 ML ML IVPB ONE (11:49)
[2017-12-25] MEDS ORDERED: TRANEXAMIC ACID 1000 MG/10 ML VIAL IVPUSH ONE (11:51)
[2017-12-25] MEDS ORDERED: VANCOMYCIN 1,000 MG VIAL (RESTRICTED TO ID ONLY) ONE (12:03)
[2017-12-25] MEDS ORDERED: LACTATED RINGERS SOLUTION 1,000 ML IV SCH ×2 (13:15→15:30)
[2017-12-25] MEDS ORDERED: ACETAMINOPHEN 325 MG TABLET (FP) PO SCH (13:15)
[2017-12-25] MEDS ORDERED: ONDANSETRON 4 MG/2 ML VIAL IVPUSH PRN ×2 (13:15→15:19)
[2017-12-25] MEDS ORDERED: oxyCODONE HCL 5 MG TABLET PO PRN (13:18)
[2017-12-25] MEDS ORDERED: MAGNESIUM HYDROX 2400MG/30ML ORAL SUSPENSION 30 ML CUP PO PRN (15:19)
[2017-12-25] MEDS ORDERED: MAG HYDROX/AL HYDROX/SIMETH 30 ML UNIT-DOSE CUP PO PRN (15:19)
[2017-12-25] MEDS ORDERED: ePHEDrine SULFATE 50 MG/1 ML AMPULE ONE (15:35)
--- NOTE | 2017-12-25 15:35 | OP ---
Operative Note - Note: Operative Date: 12/25/17 Pre-Operative Diagnosis: Left DRAKE stem subsidence Operation: Revision left total hip replacement (acetabular and femoral components) Post-Operative Diagnosis: Same as Pre-op Surgeon: Lalit Alcantara Retirement Consultant: Aileen Bradford Anesthesiologist/EMPLOYMENT CONSULTANT: Renetta Parker Anesthesia: Spinal Specimens Removed: Left acetabular polyethylene liner. Left femoral stem & head Estimated Blood Loss (mls): 1,350 Drains & Tubes with Location: 1 x deep HemoVac Blood Volume Replaced (mls): 500 (Cell Saver) Fluid Volume Replaced (mls): 2,500 (Crystalloid) Operative Report Dictated: Yes
--- NOTE | 2017-12-25 15:40 | PN ---
Progress Note (short form) - Note Progress Note: 67M s/p revision LEFT DRAKE POD #0. -Pain control. -DVT PPx: -Chemical: ASA 81mg PO BID x 6 weeks. -Mechanical: HE's, SCD's. -Incentive spirometry. -PT/OT/Rehab, OOB. -WBAT LLE. -Post-op Ancef x 2 doses. -Mckeon care. -f/u AM labs. -Diet as tolerated. -Care per medical hospitalist team. -Discharge planning. -Will follow. Lalit Alcantara MD (Orthopaedic Surgery).
[2017-12-25 17:01] LABS: HEMATOCRIT 35.7 % (35.4-49); HEMOGLOBIN 11.7 GM/dl (11.7-16.9); MCH 27.3 pg (25.7-33.7); MCHC 32.7 g/dl (32.0-35.9); MEAN CELL VOLUME 83.4 fl (80-96); MEAN PLT VOLUME 9.3 fl (7.5-11.1); RBC 4.28 M/mm3 (4.00-5.60); RDW 17.9 % (11.9-15.9); WHITE BLOOD COUNT 8.6 K/mm3 (4.0-10.8)
[2017-12-25 17:41] LABS: PLATELET COUNT 103 K/MM3 (134-434)
[2017-12-25] MEDS ORDERED: oxyCODONE HCL 5 MG TABLET ONE (18:02)
[2017-12-25] MEDS ORDERED: oxyCODONE HCL 5 MG TABLET PO ONE (18:05)
[2017-12-25] MEDS: oxyCODONE HCL 5 MG TABLET PO PRN (20:00)
[2017-12-25] MEDS: CEFAZOLIN 2 GM/D5W 2 GM/50 ML ML IVPB SCH (20:05)
[2017-12-25] MEDS: ASPIRIN COATED 81 MG TABLET.EC PO SCH (21:05)
[2017-12-25] MEDS: SENNOSIDES/DOCUSATE COMBO (SENNA PLUS) TABLET (UD) PO SCH (21:05)
[2017-12-25] MEDS: oxyCODONE HCL 10 MG SUSTAINED ACTING TABLET PO SCH (22:00)
[2017-12-25] MEDS: GABAPENTIN 300 MG CAPSULE (FP) PO SCH (22:00)
[2017-12-25] MEDS: clonazePAM 2 MG TABLET PO SCH (22:00)
--- NOTE | 2017-12-25 23:47 | CONSULT ---
Consult Consult Specialty:: Hospital Medicine Referred by:: Dr. Alcantara - History of Present Illness Chief Complaint: L- Hip Pain History of Present Illness: This is a 67 y/o man with a PMHx of HTN, Acid Reflux, IBS, BPH, Hypothyroidism, Anxiety. s/p Left Hip Revision POD #1. Patient is AAOx3, reports having the revision secondary to continued pain after the L-THR 07/24/17. Patient reports some discomfort to the L-Hip 07/04. Patient reports having full sensation to his L-leg. Patient has a denny, patient passed flatulence, no BM. Patient denies fever, chills, cough, SOB, dizziness, CP, AP, N/V/D. - History Source History Provided By: Patient, Medical Record Limitations to Obtaining History: No Limitations - Past Medical History Cardio/Vascular: Yes: HTN Pulmonary: Yes: Pulmonary Embolus (post lumbar sx 2011) Gastrointestinal: Yes: GERD, Irritable Bowel Disease Renal/: Yes: BPH Psych: Yes: Anxiety, Depression Musculoskeletal: Yes: Osteoarthritis - Past Surgical History Past Surgical History: Yes: Colonoscopy, Joint Replacement Additional Surgical History: IVC Filter. Multiple Lumbar Sx - Alcohol/Substance Use Hx Alcohol Use: No - Smoking History Smoking history: Never smoked Have you smoked in the past 12 months: No Home Medications - Allergies Allergies/Adverse Reactions: Allergies Allergy/AdvReac Type Severity Reaction Status Date / Time shellfish derived Allergy Swelling Verified 07/24/17 08:39 - Home Medications Home Medications: Ambulatory Orders Baclofen 10 mg PO DAILY 07/17/17 Bisacodyl [Dulcolax] 15 mg PO HS 07/17/17 Clonazepam [Klonopin] 2 mg PO BID 07/17/17 Dexlansoprazole [Dexilant] 60 mg PO DAILY 07/17/17 Domperidone 10 mg PO DAILY 07/17/17 Gabapentin [Neurontin] 600 mg PO TID 07/17/17 Levothyroxine [Synthroid -] 50 mcg PO DAILY 07/17/17 Lisinopril 10 mg PO HS 07/17/17 Methylnaltrexone Fishers [Relistor] 150 mg PO TID 07/17/17 Oxycodone HCl 30 mg PO TID 07/17/17 Pregabalin [Lyrica -] 50 mg PO BID 07/17/17 Tamsulosin HCl 0.4 mg PO DAILY 07/17/17 Aspirin [ASA -] 81 mg PO BID #90 tab.chew 07/26/17 Review of Systems - Review of Systems Constitutional: reports: No Symptoms Eyes: reports: No Symptoms HENT: reports: No Symptoms Neck: reports: No Symptoms Cardiovascular: reports: No Symptoms Respiratory: reports: No Symptoms Gastrointestinal: reports: No Symptoms Genitourinary: reports: No Symptoms Breasts: reports: No Symptoms Reported Musculoskeletal: reports: Joint Pain Integumentary: reports: No Symptoms Neurological: reports: No Symptoms Endocrine: reports: No Symptoms Hematology/Lymphatic: reports: No Symptoms Psychiatric: reports: No Symptoms Physical Exam Vital Signs: Vital Signs Temperature 98.1 F 12/25/17 22:00 Pulse Rate 73 12/25/17 22:00 Respiratory Rate 18 12/25/17 22:00 Blood Pressure 100/58 L 12/25/17 22:00 O2 Sat by Pulse Oximetry (%) 100 12/25/17 18:00 Constitutional: Yes: Well Nourished, No Distress, Calm Eyes: Yes: WNL, Conjunctiva Clear, EOM Intact, PERRL HENT: Yes: WNL, Atraumatic, Normocephalic Neck: Yes: WNL, Supple, Trachea Midline Cardiovascular: Yes: WNL, Regular Rate and Rhythm, S1, S2 Respiratory: Yes: WNL, Regular, CTA Bilaterally, On Nasal O2 Gastrointestinal: Yes: WNL, Normal Bowel Sounds, Soft Renal/: Yes: Denny Present (Yellow urine in drainage bag) Breast(s): Yes: WNL Musculoskeletal: Yes: Other (L-Hip pain, icepack, dressing dry-intact,) Edema: No Peripheral Pulses WNL: Yes Wound/Incision: Yes: Dressing Dry and Intact Neurological: Yes: WNL, Alert, Oriented, Cran Nerves II-XII Intact ...Motor Strength: LUE, RUE, RLE Psychiatric: Yes: WNL, Alert, Oriented Labs: CBC, BMP 12/25/17 16:40 Home Medication List Medication Instructions Recorded Confirmed Type Baclofen 10 mg PO DAILY 07/17/17 12/25/17 History Bisacodyl [Dulcolax] 15 mg PO HS 07/17/17 12/25/17 History Clonazepam [Klonopin] 2 mg PO BID 07/17/17 12/25/17 History Dexlansoprazole [Dexilant] 60 mg PO DAILY 07/17/17 12/25/17 History Domperidone 10 mg PO DAILY 07/17/17 12/25/17 History Gabapentin [Neurontin] 600 mg PO TID 07/17/17 12/25/17 History Levothyroxine [Synthroid -] 50 mcg PO DAILY 07/17/17 12/25/17 History Lisinopril 10 mg PO HS 07/17/17 12/25/17 History Methylnaltrexone Fishers [Relistor] 150 mg PO TID 07/17/17 12/25/17 History Oxycodone HCl 30 mg PO TID 07/17/17 12/25/17 History Pregabalin [Lyrica -] 50 mg PO BID 07/17/17 12/25/17 History Tamsulosin HCl 0.4 mg PO DAILY 07/17/17 12/25/17 History Active Medications Generic Name Dose Route Start Last Admin Trade Name Freq PRN Reason Stop Dose Admin Acetaminophen 650 mg 12/26/17 00:00 Tylenol - PO Q6H RADHA Al Hydroxide/Mg Hydroxide 30 ml 12/25/17 15:19 Mylanta Oral Suspension - PO Q4H PRN DYSPEPSIA Aspirin 81 mg 12/25/17 22:00 12/25/17 21:05 Ecotrin - PO 81 mg BID RADHA Administration Clonazepam 2 mg 12/25/17 22:00 12/25/17 22:00 Klonopin - PO 2 mg BID RADHA Administration Fentanyl 50 mcg 12/25/17 13:15 Sublimaze Injection - IVPUSH [id number] PRN PAIN-PACU ORDER X 4 DOSES ONLY Gabapentin 600 mg 12/25/17 22:00 12/25/17 22:00 Neurontin - PO 600 mg TID RADHA Administration Cefazolin Sodium/Dextrose 2 gm in 50 mls @ 200 mls/hr 12/25/17 20:00 20:05 Ancef 2 Gm Premixed Ivpb - IVPB 12/26/17 04:14 200 mls/hr Q8H RADHA Administration Lactated Ringer's 1,000 mls @ 125 mls/hr 12/25/17 15:30 Lactated Ringers Solution IV 12/26/17 06:00 ASDIR RADHA Levothyroxine Sodium 50 mcg 12/26/17 07:00 Synthroid - PO DAILY@0700 [facility] Magnesium Hydroxide 30 ml 12/25/17 15:19 Milk Of Magnesia - PO PRN PRN CONSTIPATION Ondansetron HCl 4 mg 12/25/17 13:15 Zofran Injection IVPUSH Q6H PRN NAUSEA AND/OR VOMITING Ondansetron HCl 4 mg 12/25/17 15:19 Zofran Injection IVPUSH Q6H PRN NAUSEA Oxycodone HCl 30 mg 12/25/17 22:00 12/25/17 22:00 Oxycontin - PO 12/28/17 13:16 30 mg BID RADHA Administration Oxycodone HCl 15 mg 12/25/17 13:18 Roxicodone - PO Q3H PRN PAIN LEVEL 1-5 Oxycodone HCl 20 mg 12/25/17 13:19 12/25/17 20:00 Roxicodone - PO 20 mg Q4H PRN Administration PAIN LEVEL 6-10 Pantoprazole Sodium 40 mg 12/26/17 10:00 Protonix - PO DAILY [facility] Pregabalin 50 mg 12/26/17 01:15 Lyrica - PO BID [facility] Senna/Docusate Sodium 2 tablet 12/25/17 22:00 12/25/17 21:05 Pericolace - PO 2 tablet BID [facility] Administration Tamsulosin HCl 0.4 mg 12/26/17 08:30 Flomax - PO DAILY@0830 [facility] Intake & Output 12/23/17 12/24/17 12/25/17 12/26/17 23:59 23:59 23:59 23:59 Intake Total 3600 Output Total 3090 Balance 510 Weight 75.75 kg Assessment/Plan 67 y/o man PMHx HTN, Hypothyroid, GERD, Anxiety. s/p Left Hip Revision POD#0 Plan Continue ortho regimen Monitor CBC, BMP Continue Levothyroxine, Gabapentin, Lyrica, Flomax Will hold Lisinopril tonight BP 110/68, will assess 12/26 Incentive spirometry PPI FEN- Po fluids as tolerated, replete lytes prn, Low Na Diet DVT ppx- OOB- defer to ortho, SCDs, Hold AC 2/2 Thrombocytopenia Visit type - Emergency Visit Emergency Visit: No - New Patient This patient is new to me today: Yes Date on this admission: 12/25/17 - Critical Care Critical Care patient: No
[2017-12-26] MEDS: PREGABALIN 50 MG CAPSULE PO SCH ×4 (02:01→21:25)
[2017-12-26] MEDS: CEFAZOLIN 2 GM/D5W 2 GM/50 ML ML IVPB SCH (03:00)
[2017-12-26] MEDS: ACETAMINOPHEN 325 MG TABLET (FP) PO SCH ×4 (06:43→18:30)
[2017-12-26] MEDS: GABAPENTIN 300 MG CAPSULE (FP) PO SCH ×3 (06:43→21:25)
[2017-12-26] MEDS: oxyCODONE HCL 5 MG TABLET PO PRN (06:45)
[2017-12-26] MEDS ORDERED: LEVOTHYROXINE NA 50 MCG TABLET (FP) PO SCH (07:00)
--- NOTE | 2017-12-26 07:28 | PN ---
Progress Note (short form) - Note Progress Note: POD #1 Alert. Sitting in bed c/o a lot of LEFT hip pain. Hasn't been OOB yet. C/o that his LLE is still numb but able to move his toes (explained to him that the block is wearing off -- motor comes back first then sensory). Denies n/v/f/c, CP , palpitations or SOB. Last Vital Signs Temp Pulse Resp BP Pulse Ox 98.7 F 89 19 101/58 L 100 12/26/18 06:00 18 06:00 18 06:00 18 06:00 12/26/17 07:11 Gen: mild discomfort (just received oxycodone) LE: Left hip dressing c/d/i. Hemovac 310mL (sanguinous). No calf tenderness or swelling. Wearing SCDs bilat. Foot warm Problem List - Problems (1) History of total left hip arthroplasty Assessment/Plan: POD #1 s/p Revision left total hip replacement (acetabular and femoral components) - Pain control. -DVT PPx: -Chemical: ASA 81 mg po BID x 6 weeks -Mechanical: HE's, SCD's -Incentive Spirometry. -PT/OT/Rehab, OOB. -WBAT LLE RLE. -Posterior L R hip precautions. -f/u drain output. -f/u am labs. -f/u post-op TOV. -Hip abduction pillow -Care per medical hospitalist team. -Discharge planning: f/u [facility] [place] office environmental engineering aide for appointment: -Will follow. Code(s): Z96.642 - PRESENCE OF LEFT ARTIFICIAL HIP JOINT
[2017-12-26 08:15] LABS: HEMATOCRIT 27.4 % (35.4-49); HEMOGLOBIN 8.6 GM/dl (11.7-16.9); MCH 26.6 pg (25.7-33.7); MCHC 31.4 g/dl (32.0-35.9); MEAN CELL VOLUME 84.7 fl (80-96); MEAN PLT VOLUME 9.2 fl (7.5-11.1); PLATELET COUNT 152 K/MM3 (134-434); RBC 3.24 M/mm3 (4.00-5.60); RDW 17.2 % (11.9-15.9); WHITE BLOOD COUNT 6.9 K/mm3 (4.0-10.8)
[2017-12-26 08:18] LABS: ANION GAP 5 MMOL/L (8-16); BLOOD UREA NITROGEN 15 mg/dl (7-18); CHLORIDE 104 mmol/L (98-107); CO2 29 mmol/L (22-28); CREATININE 0.7 mg/dl (0.6-1.3); GLUCOSE,RANDOM 110 mg/dl (74-106); POTASSIUM 4.3 mmol/L (3.5-5.1); SODIUM 138 mmol/L (136-145)
--- NOTE | 2017-12-26 08:29 | PN ---
Physical Exam: SUBJECTIVE: Patient seen and examined, reports pain to the left lower extremity upon movement, denies any paresthesia to the extremity, reports feeling dizzy, repeat b/p 67/42. OBJECTIVE: Vital Signs Period Temp Pulse Resp BP Sys/Brar Pulse Ox Last 24 Hr 95 F-98.7 F 64-90 16-19 97-127/58-87 95-100 GENERAL: The patient is awake, alert, and fully oriented, anxious. HEAD: Normal with no signs of trauma. EYES: PERRL, extraocular movements intact, pale sclera, conjunctiva clear. No ptosis. ENT: Ears normal, nares patent, oropharynx clear without exudates, moist mucous membranes. NECK: Trachea midline, full range of motion, supple. LUNGS: Breath sounds equal, clear to auscultation bilaterally, no wheezes, no crackles, no accessory muscle use. HEART: Regular rate and rhythm, S1, S2 without murmur, rub or gallop. ABDOMEN: Soft, nontender, nondistended, normoactive bowel sounds, no guarding, no rebound, no hepatosplenomegaly, no masses. EXTREMITIES: dressing noted to the left lateral hip, clean and dry and intact, hemovac drain 160ml of sangenous drainage within the past 12 hours, 2+ pulses, warm, well-perfused, no edema. NEUROLOGICAL: Cranial nerves II through XII grossly intact. Normal speech, gait not observed. PSYCH: Normal mood, normal affect. SKIN: cool, dry, normal turgor, no rashes or lesions noted Laboratory Results - last 24 hr 12/25/17 12/25/17 12/26/17 15:05 16:40 07:44 WBC 8.6 6.9 RBC 4.28 3.24 L Hgb 11.7 8.6 L Hct 35.7 D 27.4 L D MCV 83.4 84.7 MCH 27.3 26.6 MCHC 32.7 31.4 L RDW 17.9 H D 17.2 H Plt Count 103 L D 152 D MPV 9.3 9.2 Sodium Potassium Chloride Carbon Dioxide Anion Gap BUN Creatinine Creat Clearance w eGFR Random Glucose Calcium Blood Type B POSITIVE Antibody Screen Negative 12/26/17 07:44 WBC RBC Hgb Hct MCV MCH MCHC RDW Plt Count MPV Sodium 138 Potassium 4.3 Chloride 104 Carbon Dioxide 29 H Anion Gap 5 L BUN 15 Creatinine 0.7 Creat Clearance w eGFR > 60 Random Glucose 110 H Calcium 8.0 L Blood Type Antibody Screen Active Medications Active Medications Generic Name Dose Route Start Last Admin Trade Name Kolbyq PRN Reason Stop Dose Admin Acetaminophen 650 mg 12/26/17 00:00 12/26/17 06:43 Tylenol - PO 650 mg Q6H RADHA Administration Al Hydroxide/Mg Hydroxide 30 ml 12/25/17 15:19 Mylanta Oral Suspension - PO Q4H PRN DYSPEPSIA Aspirin 81 mg 12/25/17 22:00 12/26/17 09:08 Ecotrin - PO 81 mg BID RADHA Administration Clonazepam 2 mg 12/25/17 22:00 12/26/17 09:08 Klonopin - PO 2 mg BID RADHA Administration Gabapentin 600 mg 12/25/17 22:00 12/26/17 06:43 Neurontin - PO 600 mg TID RADHA Administration Sodium Chloride 1,000 mls @ 1,000 mls/hr 12/26/17 10:52 Normal Saline - IV 12/26/17 11:51 ASDIR STA Levothyroxine Sodium 50 mcg 12/26/17 10:00 12/26/17 10:12 Synthroid - PO Not Given DAILY@0700 RADHA Magnesium Hydroxide 30 ml 12/25/17 15:19 Milk Of Magnesia - PO PRN PRN CONSTIPATION Ondansetron HCl 4 mg 12/25/17 15:19 Zofran Injection IVPUSH Q6H PRN NAUSEA Oxycodone HCl 30 mg 12/25/17 22:00 12/26/17 09:08 Oxycontin - PO 12/28/17 13:16 30 mg BID RADHA Administration Oxycodone HCl 15 mg 12/25/17 13:18 Roxicodone - PO Q3H PRN PAIN LEVEL 1-5 Oxycodone HCl 20 mg 12/25/17 13:19 12/26/17 06:45 Roxicodone - PO 20 mg Q4H PRN Administration PAIN LEVEL 6-10 Pantoprazole Sodium 40 mg 12/26/17 10:00 12/26/17 09:08 Protonix - PO 40 mg DAILY RADHA Administration Pregabalin 50 mg 12/26/17 10:00 12/26/17 10:12 Lyrica - PO Not Given BID [facility] Senna/Docusate Sodium 2 tablet 12/25/17 22:00 12/26/17 09:08 Pericolace - PO 2 tablet BID RADHA Administration Tamsulosin HCl 0.4 mg 12/26/17 10:00 12/26/17 10:12 Flomax - PO Not Given DAILY@0830 [facility] patient is a 67 y/o male with a pmh of htn, oa, ibs, bph, and anxiety. patient was admitted to the medical surgical floor after a left hip revision with THR, 12/25/17. ASSESSMENT/PLAN: 1)_MS left total hip revision with replacement of acetabular and femoral complonents, pod #1 - repeat hgb this AM 8.6, ESBL 1500ml, patient is hypotensive and symptomatic, will transfuse 1 unit of prbc - will continue home dose lyrica and neurontin, caution with narcotic pain medication secondary to hypotension - strict monitoring of drainage output - physical therapy as per the orthopedist 2) cardiovascular hypertension - hold lisinopril secondary to hypotension 3) endo hypothyroid - continue home dose levothyroxine 4) GI IBS - continue home medication GERD - continue protonix 5) bph - d/c denny, continue flomax, voiding trial 6) psych anxiety - continue klonopin f/e/n - regular diet - replete electrolytes ppx - oob - physical therapy as per the orthopedist - protonix - scd/candido - asa dispo: pt requires inpatient admission Visit type - Emergency Visit Emergency Visit: No - New Patient This patient is new to me today: No - Critical Care Critical Care patient: No - Discharge Referral Referred to [facility] Med [facility] No
[2017-12-26] MEDS ORDERED: TAMSULOSIN HCL 0.4 MG CAP PO SCH (08:30)
--- NOTE | 2017-12-26 08:56 | OP ---
DATE OF OPERATION: 12/25/2017 SURGEON: Lalit Alcantara MD INSERT MOLDING OPERATOR: Jericho Alcantara MD, and PA, [facility]. PREOPERATIVE DIAGNOSIS: Loosening of femoral component and shortening of left lower extremity by 2 inches. POSTOPERATIVE DIAGNOSIS: Loosening of femoral component and shortening of left lower extremity by 2 inches. OPERATION PERFORMED: 1. Revision left total hip arthroplasty. 2. Explant femur and acetabular components. 3. Extended trochanteric osteotomy. 4. Complex wound closure of 40 cm. ANESTHESIA: General with spinal anesthesia. ANTIBIOTICS GIVEN: Kefzol 2 g, vancomycin 1 g preoperatively. Kefzol 1 g given following seating of the femoral component. BLOOD LOSS: Approximately 1.5 L; Cell Saver blood utilized, 2 pints of blood ordered postoperatively. DESCRIPTION OF PROCEDURE: The patient was correctly identified, brought into the operating room. The left lower extremity was prepped, free draped in the routine manner. Time-out was called. Imaging was evaluated for intraoperative evaluation. The intrigue of this case was a gentleman with a severely retroverted pelvis due to a flat back following previous spinal surgery which has resulted in a retroverted pelvis as outlined above. The cup seating had been positioned in slight anteversion; that was the last operation. The femoral component appeared to have subsided significantly. The lateral wound was opened in the exact original area. This was extended distally. The hip abductor mechanism was dissected off the fascia with sharp dissection. A Charnley retractor placed deep to this. Once this had been performed, a Cochran-Koehler window was exposed. A transverse cut of muscle at the vastus lateralis just distal to the trochanteric ridge performed. Muscle lifted off the bone by about 1.5 inches. Using an oscillating saw, the bone cuts were made appropriately right up to the superior aspect of the femoral neck coursing along the anterior surface of the femur transversely 1.5 inches distal to the trochanteric ridge and then continuing longitudinally in the area of the posterior area of linear aspirate to the spiral line of the femur. The femoral bone bed and trochanter were lifted off the actual femoral component without any difficulty. In order to explant the femoral component, it proved difficult, a Gigli saw was placed around the top end of this and cut distally and then the entire femoral component removed without any difficulty. Anterior, posterior and inferior retractors were placed around the acetabulum. The Charnley pin held the hip abductor muscle combined with the greater trochanter out of harms way. The polyethylene liner was extricated. The acetabular component was left in situ. Clinically, this was a neutral eversion, not 10 degrees of anteversion and certainly not in retroversion. Once this had been performed, reaming of the femur was to size 17, and a size 17 short-stemmed stem inserted with solid press-fit being achieved. The femoral component was an CHARLINE 17 x 155 mm distal stem from [facility], and the body of the femoral component was an CHARLINE mormon modular stem 23 + 10 body. A trialing of the component in order to gain equal leg length was best seated with an MDM 48 cementless liner and MDM 28 x 48 x 3 insert, and then a 28 + 4 ceramic head inserted into the MDM insertion device. This gave equal leg length on the table and full range of movement. I elected to use a dual modularity cup because of the neutralization of the actual cup position even though it was not in retroversion, I elected for safety margin in range of motion and this was borne out on the table. I could flex him well beyond, to about 100 degrees of flexion, abducted him to 30 degrees. Internal rotation and external rotation were completely stable, and no impingement of the trunnion on any of the periphery cup noted. Once this had been performed, the extended trochanteric osteotomy was shortened because of the bunching up of the hip abductor mechanism, and in accord with the principles of Charnley, distalization of the trochanter was performed and held with 3 cerclage cables. Solid fixation was achieved appropriately. The wounds throughout the operation were thoroughly lavaged. Closure of the deep hip abductor mechanism with 1 Vicryl, fascia 1 Vicryl, subcutaneous 1 and 2-0 Vicryl in 2 separate layers, and skin anabelle. Drainage 1/8-inch Hemovac subfascially x1. Postop x-rays were excellent. Overall comment: The operation went extremely well. Leg length was restored to equal, full range of movement on the table. Postop x-rays revealed solid fixation of all components. Plan for mobilization and general medical management over the next few days. MD MAIKEL [id number]
[2017-12-26] MEDS: SENNOSIDES/DOCUSATE COMBO (SENNA PLUS) TABLET (UD) PO SCH ×2 (09:08→21:27)
[2017-12-26] MEDS: clonazePAM 2 MG TABLET PO SCH ×2 (09:08→21:25)
[2017-12-26] MEDS: ASPIRIN COATED 81 MG TABLET.EC PO SCH ×2 (09:08→21:25)
[2017-12-26] MEDS: PANTOPRAZOLE 40 MG TABLET (FP) PO SCH (09:08)
[2017-12-26] MEDS: oxyCODONE HCL 10 MG SUSTAINED ACTING TABLET PO SCH ×2 (09:08→21:26)
[2017-12-26] MEDS: TAMSULOSIN HCL 0.4 MG CAP PO SCH (10:12)
[2017-12-26] MEDS: LEVOTHYROXINE NA 50 MCG TABLET (FP) PO SCH (10:12)
[2017-12-26] MEDS ORDERED: SODIUM CHLORIDE 1,000 ML IV STA (10:52)
[2017-12-26 11:56] LABS: RDW 17.7 % (11.9-15.9)
[2017-12-26 11:59] LABS: HEMATOCRIT 23.4 % (35.4-49); HEMOGLOBIN 7.8 GM/dl (11.7-16.9); MCH 27.6 pg (25.7-33.7); MCHC 33.2 g/dl (32.0-35.9); MEAN CELL VOLUME 83.2 fl (80-96); MEAN PLT VOLUME 9.2 fl (7.5-11.1); PLATELET COUNT 121 K/MM3 (134-434); RBC 2.81 M/mm3 (4.00-5.60); WHITE BLOOD COUNT 7.5 K/mm3 (4.0-10.8)
--- NOTE | 2017-12-26 15:09 | PN ---
Progress Note (short form) - Note Progress Note: 67M POD1 s/p L revision THR under spinal anesthetic with peripheral nerve block for post operative pain relief. Pt states that pain is well controlled. Pt required pRbc transfusion this morning for symptomatic anemia and hypotension, greatly improved post transfusion. AVSS. Motor and sensory exam intact in bilateral lower extremities. Continue current regimen.
[2017-12-26] MEDS: METHYLNALTREXONE BROMIDE 150 MG PO SCH (15:17)
[2017-12-26 18:18] LABS: BASO % 1.7 % (0-2.0); EOS % 0.1 % (0-4.5); HEMATOCRIT 26.8 % (35.4-49); HEMOGLOBIN 8.7 GM/dl (11.7-16.9); LYMPH % 9.9 % (8-40); MCH 27.5 pg (25.7-33.7); MCHC 32.4 g/dl (32.0-35.9); MEAN PLT VOLUME 8.9 fl (7.5-11.1); MONO % 9.6 % (3.8-10.2); NEUT % 78.7 % (42.8-82.8); PLATELET COUNT 135 K/MM3 (134-434); RBC 3.16 M/mm3 (4.00-5.60); RDW 17.2 % (11.9-15.9); WHITE BLOOD COUNT 9.9 K/mm3 (4.0-10.8)
[2017-12-27] MEDS: METHYLNALTREXONE BROMIDE 150 MG PO SCH ×2 (01:16→06:15)
[2017-12-27] MEDS: ACETAMINOPHEN 325 MG TABLET (FP) PO SCH ×3 (01:19→12:01)
[2017-12-27] MEDS: GABAPENTIN 300 MG CAPSULE (FP) PO SCH ×3 (06:38→21:36)
[2017-12-27] MEDS: LEVOTHYROXINE NA 50 MCG TABLET (FP) PO SCH (06:38)
--- NOTE | 2017-12-27 07:18 | PN ---
Progress Note (short form) - Note Progress Note: POD #2 Alert. Sitting in bed. Still having incisional pain but controlled well with medications ordered. He got OOB yesterday and sat in the chair for 3 hours. Still reluctant to ambulate. His H/H yesterday 7.8/23.4 necessitating transfusion of PRBC x2. Feels much better today. Denies n/v/f/c, CP, palpitations or SOB. Last Vital Signs Temp Pulse Resp BP Pulse Ox 99.6 F 102 H 19 129/52 L 100 11/18 06:26 1118 06:26 1118 06:26 12/27/17 06:26 12/27/17 06:26 Gen: alert. nad. LE: Hip abduction pillow in place. Left hip dressing c/d/i. Hemovac 590mL / 24hrs (sanguinous). Mild left calf tenderness to palpation, Negative Jesus's, Negative swelling/edema. Wearing SCDs bilat. Foot warm. RLE unremarkable. Problem List - Problems (1) History of total left hip arthroplasty Assessment/Plan: POD #2 s/p Revision left total hip replacement (acetabular and femoral components) - Pain control. -DVT PPx: -Chemical: ASA 81 mg po BID x 6 weeks -Mechanical: HE's, SCD's -Incentive Spirometry. -PT/OT/Rehab, OOB. -WBAT LLE -Posterior Left hip precautions. -f/u drain output. -f/u H/H -Folitab -Transfuse PRBC prn -Hip abduction pillow -Care per medical hospitalist team. -Discharge planning: f/u [facility] [place] office correctional case records supervisor for appointment: -Will follow. Problem List - Problems (1) History of total left hip arthroplasty Code(s): Z96.642 - PRESENCE OF LEFT ARTIFICIAL HIP JOINT
--- NOTE | 2017-12-27 07:29 | PN ---
Physical Exam: SUBJECTIVE: Patient seen and examined, reports feeling less tired, minimal pain to left hip, denies any paresthesia to the left lower extremity, received 2 units of prbc on post operative day 1. OBJECTIVE:patient is a 67 y/o male with a pmh of htn, oa, ibs, bph, and anxiety. patient was admitted to the medical surgical floor after a left hip revision with THR, 12/25/17. patient developed hypotension on post operative day 1, requiring 2 units of prbcs. Vital Signs Period Temp Pulse Resp BP Sys/Brar Pulse Ox Last 24 Hr 98.2 F-100.0 F 77-102 17-19 67-129/42-63 100-100 GENERAL: The patient is awake, alert, and fully oriented, and calm. HEAD: Normal with no signs of trauma. EYES: PERRL, extraocular movements intact, normal sclera, conjunctiva clear. No ptosis. ENT: Ears normal, nares patent, oropharynx clear without exudates, moist mucous membranes. NECK: Trachea midline, full range of motion, supple. LUNGS: Breath sounds equal, clear to auscultation bilaterally, no wheezes, no crackles, no accessory muscle use. HEART: Regular rate and rhythm, S1, S2 without murmur, rub or gallop. ABDOMEN: Soft, nontender, nondistended, normoactive bowel sounds, no guarding, no rebound, no hepatosplenomegaly, no masses. EXTREMITIES: dressing noted to the left lateral hip, clean and dry and intact, hemovac drain a total of 590ml of sangenous drainage within the past 24 hours, 2+ pulses, warm, well-perfused, no edema. NEUROLOGICAL: Cranial nerves II through XII grossly intact. Normal speech, gait not observed. PSYCH: Normal mood, normal affect. SKIN: cool, dry, normal turgor, no rashes or lesions noted Laboratory Results - last 24 hr CBC WBC 12.0 K/mm3 (4.0-10.8) H 12/27/17 07:36 RBC 3.24 M/mm3 (4.00-5.60) L 12/27/17 07:36 Hgb 9.0 GM/dl (11.7-16.9) L 12/27/17 07:36 Hct 27.3 % (35.4-49) L 12/27/17 07:36 MCV 84.1 fl (80-96) 12/27/17 07:36 MCH 27.6 pg (25.7-33.7) 12/27/17 07:36 MCHC 32.9 g/dl (32.0-35.9) 12/27/17 07:36 RDW 17.6 % (11.9-15.9) H 12/27/17 07:36 Plt Count 121 K/MM3 (134-434) L 12/27/17 07:36 MPV 9.5 fl (7.5-11.1) 12/27/17 07:36 Absolute Neuts (auto) 9.6 K/mm3 12/27/17 07:36 Neutrophils % 79.6 % (42.8-82.8) 12/27/17 07:36 Neutrophils % (Manual) 79.0 % (42.8-82.8) 12/26/17 11:49 Lymphocytes % 7.9 % (8-40) L D 12/27/17 07:36 Lymphocytes % (Manual) 10.0 % (8-40) 12/26/17 11:49 Monocytes % 12.1 % (3.8-10.2) H 12/27/17 07:36 Monocytes % (Manual) 11 % (3.8-10.2) H 12/26/17 11:49 Eosinophils % 0.2 % (0-4.5) D 12/27/17 07:36 Basophils % 0.2 % (0-2.0) 12/27/17 07:36 CMP Sodium 138 mmol/L (136-145) 12/27/17 07:36 Potassium 3.6 mmol/L (3.5-5.1) 12/27/17 07:36 Chloride 106 mmol/L (98-107) 12/27/17 07:36 Carbon Dioxide 27 mmol/L (22-28) 12/27/17 07:36 Anion Gap 5 MMOL/L (8-16) L 12/27/17 07:36 BUN 14 mg/dl (7-18) 12/27/17 07:36 Creatinine 0.6 mg/dl (0.6-1.3) 12/27/17 07:36 Creat Clearance w eGFR > 60 (>60) 11/02/18 07:36 Random Glucose 109 mg/dl (74-106) H 12/27/17 07:36 Calcium 7.9 mg/dl (8.4-10.2) L 12/27/17 07:36 Phosphorus 2.0 mg/dl (2.5-4.6) L 12/27/17 07:36 Magnesium 1.6 mg/dL (1.8-2.4) L 12/27/17 07:36 Active Medications Generic Name Dose Route Start Last Admin Trade Name Freq PRN Reason Stop Dose Admin Acetaminophen 650 mg 12/26/17 00:00 12/27/17 06:38 Tylenol - PO 650 mg Q6H RADHA Administration Al Hydroxide/Mg Hydroxide 30 ml 12/25/17 15:19 Mylanta Oral Suspension - PO Q4H PRN DYSPEPSIA Aspirin 81 mg 12/25/17 22:00 12/26/17 21:25 Ecotrin - PO 81 mg BID RADHA Administration Clonazepam 2 mg 12/25/17 22:00 12/26/17 21:25 Klonopin - PO 2 mg BID RADHA Administration Folic Acid/Iron 1 each 12/27/17 10:00 Folitab 500 Caplet - PO DAILY RADHA Gabapentin 600 mg 12/25/17 22:00 12/27/17 06:38 Neurontin - PO 600 mg TID [facility] Administration Levothyroxine Sodium 50 mcg 12/26/17 10:00 12/27/17 06:38 Synthroid - PO 50 mcg DAILY@0700 [facility] Administration Magnesium Hydroxide 30 ml 12/25/17 15:19 Milk Of Magnesia - PO PRN PRN CONSTIPATION Non-Formulary Medication 150 mg 12/26/17 14:00 12/27/17 06:15 Methylnaltrexone [place] [Relistor] PO Not Given TID [facility] Ondansetron HCl 4 mg 12/25/17 15:19 Zofran Injection IVPUSH Q6H PRN NAUSEA Oxycodone HCl 30 mg 12/25/17 22:00 12/26/17 21:26 Oxycontin - PO 12/28/17 13:16 30 mg BID RADHA Administration Oxycodone HCl 15 mg 12/25/17 13:18 12/26/17 21:26 Roxicodone - PO 15 mg Q3H PRN Administration PAIN LEVEL 1-5 Oxycodone HCl 20 mg 12/25/17 13:19 12/26/17 06:45 Roxicodone - PO 20 mg Q4H PRN Administration PAIN LEVEL 6-10 Pantoprazole Sodium 40 mg 12/26/17 10:00 12/26/17 09:08 Protonix - PO 40 mg DAILY RADHA Administration Pregabalin 50 mg 12/26/17 10:00 12/26/17 21:25 Lyrica - PO 50 mg BID RADHA Administration Senna/Docusate Sodium 2 tablet 12/25/17 22:00 12/26/17 21:27 Pericolace - PO 2 tablet BID RADHA Administration Tamsulosin HCl 0.4 mg 12/26/17 10:00 12/26/17 10:12 Flomax - PO Not Given DAILY@0830 [facility] ASSESSMENT/PLAN: 1)_MS left total hip revision with replacement of acetabular and femoral complonents, pod #2 acute blood loss anemia - repeat hgb this AM 9.0, discussed at length with Dr Alcantara, requesting 3rd unit of prbc, will repeat hgb at 1800. - will continue home dose lyrica and neurontin,and prn oxycodone and standing oxycontin - strict monitoring of drainage output - physical therapy as per the orthopedist 2) cardiovascular hypertension - hold lisinopril secondary to labile b/p 3) endo hypothyroid - continue home dose levothyroxine 4) GI IBS - continue home medication GERD - continue protonix 5) bph - continue flomax, no signs of urinary retention noted on exam l 6) psych anxiety - continue klonopin f/e/n - regular diet - replete electrolytes ppx - oob - physical therapy as per the orthopedist - protonix - scd/candido - asa dispo: pt requires inpatient admission Visit type - Emergency Visit Emergency Visit: No - New Patient This patient is new to me today: No - Critical Care Critical Care patient: No - Discharge Referral Referred to [facility] No
[2017-12-27 07:50] LABS: BASO % 0.2 % (0-2.0); EOS % 0.2 % (0-4.5); HEMATOCRIT 27.3 % (35.4-49); LYMPH % 7.9 % (8-40); MCH 27.6 pg (25.7-33.7); MCHC 32.9 g/dl (32.0-35.9); MEAN CELL VOLUME 84.1 fl (80-96); MEAN PLT VOLUME 9.5 fl (7.5-11.1); MONO % 12.1 % (3.8-10.2); NEUT % 79.6 % (42.8-82.8); PLATELET COUNT 121 K/MM3 (134-434); RBC 3.24 M/mm3 (4.00-5.60); RDW 17.6 % (11.9-15.9)
[2017-12-27 08:03] LABS: ANION GAP 5 MMOL/L (8-16); BLOOD UREA NITROGEN 14 mg/dl (7-18); CALCIUM 7.9 mg/dl (8.4-10.2); CHLORIDE 106 mmol/L (98-107); CO2 27 mmol/L (22-28); CREATININE 0.6 mg/dl (0.6-1.3); GLUCOSE,RANDOM 109 mg/dl (74-106); MAGNESIUM 1.6 mg/dL (1.8-2.4); POTASSIUM 3.6 mmol/L (3.5-5.1); SODIUM 138 mmol/L (136-145)
[2017-12-27] MEDS ORDERED: MAGNESIUM SULFATE 2 GM in SODIUM CHLORIDE 100 ML IVPB ONE (08:19)
[2017-12-27] MEDS: TAMSULOSIN HCL 0.4 MG CAP PO SCH (09:00)
[2017-12-27] MEDS ORDERED: MAGNESIUM SULFATE IN WATER 2 GM/50 ML IVPB IVPB ONE (09:00)
[2017-12-27] MEDS ORDERED: POTASSIUM PHOSPHATE 15 MM in SODIUM CHLORIDE 250 ML IVPB ONE (09:30)
[2017-12-27] MEDS: oxyCODONE HCL 5 MG TABLET PO PRN ×2 (09:45→20:30)
[2017-12-27] MEDS: PREGABALIN 50 MG CAPSULE PO SCH ×2 (10:14→21:38)
[2017-12-27] MEDS: SENNOSIDES/DOCUSATE COMBO (SENNA PLUS) TABLET (UD) PO SCH ×2 (10:15→21:38)
[2017-12-27] MEDS: ASPIRIN COATED 81 MG TABLET.EC PO SCH ×2 (10:15→21:38)
[2017-12-27] MEDS: PANTOPRAZOLE 40 MG TABLET (FP) PO SCH (10:15)
[2017-12-27] MEDS: clonazePAM 2 MG TABLET PO SCH ×2 (10:16→21:37)
[2017-12-27] MEDS: FERROUS SO4/VIT C/FA 1 EACH TABLET.ER PO SCH (10:17)
[2017-12-27] MEDS: oxyCODONE HCL 10 MG SUSTAINED ACTING TABLET PO SCH ×2 (12:00→21:36)
[2017-12-27 18:22] LABS: BASO % 0.3 % (0-2.0); EOS % 0.7 % (0-4.5); HEMATOCRIT 26.8 % (35.4-49); HEMOGLOBIN 8.7 GM/dl (11.7-16.9); LYMPH % 12.6 % (8-40); MCH 27.3 pg (25.7-33.7); MCHC 32.5 g/dl (32.0-35.9); MEAN CELL VOLUME 83.8 fl (80-96); MEAN PLT VOLUME 9.6 fl (7.5-11.1); MONO % 6.5 % (3.8-10.2); NEUT % 79.9 % (42.8-82.8); PLATELET COUNT 128 K/MM3 (134-434); RDW 17.6 % (11.9-15.9); WHITE BLOOD COUNT 11.9 K/mm3 (4.0-10.8)
[2017-12-28] MEDS: LEVOTHYROXINE NA 50 MCG TABLET (FP) PO SCH (06:34)
[2017-12-28] MEDS: ACETAMINOPHEN 325 MG TABLET (FP) PO SCH ×5 (06:34→19:01)
[2017-12-28] MEDS: GABAPENTIN 300 MG CAPSULE (FP) PO SCH ×3 (06:35→21:29)
[2017-12-28 08:33] LABS: BASO % 0.9 % (0-2.0); EOS % 1.4 % (0-4.5); HEMATOCRIT 24.4 % (35.4-49); LYMPH % 13.4 % (8-40); MCH 27.7 pg (25.7-33.7); MCHC 32.9 g/dl (32.0-35.9); MEAN CELL VOLUME 84.4 fl (80-96); MEAN PLT VOLUME 10.2 fl (7.5-11.1); MONO % 9.3 % (3.8-10.2); PLATELET COUNT 122 K/MM3 (134-434); RBC 2.89 M/mm3 (4.00-5.60); RDW 17.2 % (11.9-15.9)
[2017-12-28] MEDS: TAMSULOSIN HCL 0.4 MG CAP PO SCH (08:39)
[2017-12-28 08:41] LABS: ANION GAP 6 MMOL/L (8-16); BLOOD UREA NITROGEN 12 mg/dl (7-18); CALCIUM 7.8 mg/dl (8.4-10.2); CHLORIDE 106 mmol/L (98-107); CO2 26 mmol/L (22-28); CREATININE 0.6 mg/dl (0.6-1.3); GLUCOSE,RANDOM 85 mg/dl (74-106); MAGNESIUM 1.8 mg/dL (1.8-2.4); PHOSPHOROUS 1.5 mg/dl (2.5-4.6); POTASSIUM 3.9 mmol/L (3.5-5.1); SODIUM 138 mmol/L (136-145)
[2017-12-28] MEDS: PANTOPRAZOLE 40 MG TABLET (FP) PO SCH (10:13)
[2017-12-28] MEDS: oxyCODONE HCL 10 MG SUSTAINED ACTING TABLET PO SCH (10:13)
[2017-12-28] MEDS: SENNOSIDES/DOCUSATE COMBO (SENNA PLUS) TABLET (UD) PO SCH ×2 (10:13→21:30)
[2017-12-28] MEDS: PREGABALIN 50 MG CAPSULE PO SCH ×2 (10:13→21:29)
[2017-12-28] MEDS: clonazePAM 2 MG TABLET PO SCH ×2 (10:13→21:29)
[2017-12-28] MEDS: FERROUS SO4/VIT C/FA 1 EACH TABLET.ER PO SCH ×2 (10:13→10:20)
[2017-12-28] MEDS: ASPIRIN COATED 81 MG TABLET.EC PO SCH ×2 (10:13→21:29)
[2017-12-28] MEDS ORDERED: PT OWN MED DRAWER 7, Y5N ONE ×3 (10:21→13:03)
[2017-12-28] MEDS ORDERED: oxyCODONE HCL 10 MG SUSTAINED ACTING TABLET PO SCH (10:30)
--- NOTE | 2017-12-28 15:44 | PN ---
Progress Note (short form) - Note Progress Note: 67M s/p revision LEFT DRAKE POD #3 sitting comfortably, Minimal incisional pain walking in the hallway -Pain control. -DVT PPx: -Chemical: ASA 81mg PO BID x 6 weeks. -Mechanical: HE's, SCD's. -Incentive spirometry. -PT/OT/Rehab, OOB. -WBAT LLE. drainage still prevelant Continue hemovac -f/u AM labs. if Hg falls below 8 for 2 units blood. -Diet as tolerated. -Care per medical hospitalist team. -Discharge planning. -Will follow. Lalit Alcantara MD (Orthopaedic Surgery).
[2017-12-28 16:22] LABS: HEMATOCRIT 25.5 % (35.4-49); HEMOGLOBIN 8.4 GM/dl (11.7-16.9); MCH 27.6 pg (25.7-33.7); MCHC 32.8 g/dl (32.0-35.9); MEAN PLT VOLUME 9.1 fl (7.5-11.1); PLATELET COUNT 122 K/MM3 (134-434); RBC 3.03 M/mm3 (4.00-5.60); RDW 18.1 % (11.9-15.9); WHITE BLOOD COUNT 11.9 K/mm3 (4.0-10.8)
--- NOTE | 2017-12-28 17:36 | PN ---
Physical Exam: SUBJECTIVE: Patient seen and examined oob to chair. Feels oversedated and asked for pain meds to be decreased. OBJECTIVE: Vital Signs Period Temp Pulse Resp BP Sys/Brar Pulse Ox Last 24 Hr 98.4 F-99.2 F 97-113 16-19 104-131/50-67 97-100 GENERAL: The patient is awake, alert, and fully oriented, in no acute distress. LUNGS: Breath sounds equal, clear to auscultation bilaterally, no wheezes, no crackles, no accessory muscle use. HEART: Regular rate and rhythm, S1, S2 ABDOMEN: Soft, nontender, nondistended, normoactive bowel sounds, no guarding, no rebound LLE: Surgicel dressing with minimal areas of strikethrough; drain putting out dark sanguinous fluid 370cc's NEUROLOGICAL: Cranial nerves II through XII grossly intact. Normal speech, gait not observed. Laboratory Results - last 24 hr 12/27/17 12/28/17 12/28/17 17:55 07:00 08:02 WBC 11.9 H 11.0 H RBC 3.20 L 2.89 L Hgb 8.7 L 8.0 L Hct 26.8 L 24.4 L MCV 83.8 84.4 MCH 27.3 27.7 MCHC 32.5 32.9 RDW 17.6 H 17.2 H Plt Count 128 L 122 L MPV 9.6 10.2 Absolute Neuts (auto) 9.5 8.2 Neutrophils % 79.9 75.0 Lymphocytes % 12.6 D 13.4 Monocytes % 6.5 9.3 Eosinophils % 0.7 D 1.4 D Basophils % 0.3 0.9 Sodium 138 Potassium 3.9 Chloride 106 Carbon Dioxide 26 Anion Gap 6 L BUN 12 Creatinine 0.6 Creat Clearance w eGFR > 60 Random Glucose 85 D Calcium 7.8 L Phosphorus 1.5 L D Magnesium 1.8 12/28/17 16:15 WBC 11.9 H RBC 3.03 L Hgb 8.4 L Hct 25.5 L MCV 84.0 MCH 27.6 MCHC 32.8 RDW 18.1 H Plt Count 122 L MPV 9.1 D Absolute Neuts (auto) Neutrophils % Lymphocytes % Monocytes % Eosinophils % Basophils % Sodium Potassium Chloride Carbon Dioxide Anion Gap BUN Creatinine Creat Clearance w eGFR Random Glucose Calcium Phosphorus Magnesium Active Medications Generic Name Dose Route Start Last Admin Trade Name Freq PRN Reason Stop Dose Admin Acetaminophen 650 mg 12/26/17 00:00 12/28/17 11:24 Tylenol - PO 650 mg Q6H RADHA Administration Al Hydroxide/Mg Hydroxide 30 ml 12/25/17 15:19 Mylanta Oral Suspension - PO Q4H PRN DYSPEPSIA Aspirin 81 mg 12/25/17 22:00 12/28/17 10:13 Ecotrin - PO 81 mg BID [facility] Administration Clonazepam 1 mg 12/28/17 10:30 Klonopin - PO BID [facility] Folic Acid/Iron 1 each 12/27/17 10:00 12/28/17 10:20 Folitab 500 Caplet - PO Not Given DAILY [facility] Gabapentin 600 mg 12/25/17 22:00 12/28/17 13:07 Neurontin - PO 600 mg TID [facility] Administration Levothyroxine Sodium 50 mcg 12/26/17 10:00 12/28/17 06:34 Synthroid - PO 50 mcg DAILY@0700 [facility] Administration Magnesium Hydroxide 30 ml 12/25/17 15:19 Milk Of Magnesia - PO PRN PRN CONSTIPATION Non-Formulary Medication 150 mg 12/26/17 14:00 12/27/17 06:15 Methylnaltrexone [place] [Relistor] PO Not Given TID [facility] Ondansetron HCl 4 mg 12/25/17 15:19 Zofran Injection IVPUSH Q6H PRN NAUSEA Oxycodone HCl 15 mg 12/27/17 12:19 12/27/17 20:30 Roxicodone - PO 15 mg Q3H PRN Administration PAIN SCALE 1-5 Pantoprazole Sodium 40 mg 12/26/17 10:00 12/28/17 10:13 Protonix - PO 40 mg DAILY [facility] Administration Pregabalin 50 mg 12/26/17 10:00 12/28/17 10:13 Lyrica - PO 50 mg BID [facility] Administration Senna/Docusate Sodium 2 tablet 12/25/17 22:00 12/28/17 10:13 Pericolace - PO 2 tablet BID [facility] Administration Tamsulosin HCl 0.4 mg 12/26/17 10:00 12/28/17 08:39 Flomax - PO 0.4 mg DAILY@0830 [facility] Administration ASSESSMENT/PLAN 67 year-old male with a PMH significant for HTN, GERD, IBS, BPH, hypothyroidism , and anxiety. Admitted for revision left total hip replacement. Left total hip replacement revision surgery 12/25 --POD #3 --drain put out 370cc's; Hgb 8.0 and repeat 8.4 --clonazepam decreased to 1mg BID, oxycodone decreased to 10mg q4h --added bisocodyl to bowel regimen-->large BM --seen by Dr. Alcantara today --incentive spirometer, daily PT --ASA 81 BID Hypertension --BP stable --not on anti-hypertensives BPH --continue tamsulosin GERD --continue protonix PO IBS --continue bowel regimen for constipation Hypothryrodism --continue levothyroxine FEN Fluids: PO intake adequate Electrolytes: replete as indicated Nutrition: low sodium DVT prophylaxis: SCDs, oob, ambulation Physical therapy Dispo: continues to require inpatient care. Full code. Visit type - Emergency Visit Emergency Visit: No - New Patient This patient is new to me today: Yes Date on this admission: 12/29/17 - Critical Care Critical Care patient: No
[2017-12-28] MEDS ORDERED: BISACODYL 10 MG SUPP.RECT PR PRN (19:26)
[2017-12-28] MEDS: DOCUSATE SODIUM 100 MG CAPSULE (FP) PO SCH (21:29)
[2017-12-28] MEDS: POLYETHYLENE GLYCOL 3350 119 GM BTL PO SCH (21:30)
[2017-12-28] MEDS: oxyCODONE HCL 5 MG TABLET PO PRN (21:41)
[2017-12-29] MEDS: ACETAMINOPHEN 325 MG TABLET (FP) PO SCH ×5 (00:16→23:36)
[2017-12-29] MEDS: GABAPENTIN 300 MG CAPSULE (FP) PO SCH ×3 (05:04→21:34)
--- NOTE | 2017-12-29 06:13 | SURG ---
Surgery Librarian Special Library Note Librarian Special Library: Aileen Bradford PA-C Date of Service: 12/25/17 Diagnosis: Left DRAKE stem subsidence Procedure: Revision left total hip replacement (acetabular and femoral components) I was present for the entirety of the operative procedure. For further detail, please refer to operative report. Visit type - Case Type Case Type: Scheduled - Emergency Emergency Visit: No - New patient This patient is new to me today: Yes Date on this admission: 12/25/17
[2017-12-29] MEDS: LEVOTHYROXINE NA 50 MCG TABLET (FP) PO SCH (06:29)
[2017-12-29] MEDS: PANTOPRAZOLE 40 MG TABLET (FP) PO SCH ×2 (07:36→19:50)
[2017-12-29] MEDS ORDERED: TAMSULOSIN HCL 0.4 MG CAP ONE (07:46)
[2017-12-29] MEDS: TAMSULOSIN HCL 0.4 MG CAP PO SCH (07:50)
[2017-12-29 08:39] LABS: HEMATOCRIT 20.4 % (35.4-49); MCH 28.4 pg (25.7-33.7); MCHC 33.6 g/dl (32.0-35.9); MEAN CELL VOLUME 84.5 fl (80-96); PLATELET COUNT 116 K/MM3 (134-434); RBC 2.42 M/mm3 (4.00-5.60); RDW 17.3 % (11.9-15.9)
[2017-12-29 08:43] LABS: HEMOGLOBIN 6.9 GM/dl (11.7-16.9)
[2017-12-29] MEDS ORDERED: oxyCODONE HCL 5 MG TABLET PO PRN (09:49)
[2017-12-29] MEDS ORDERED: PT OWN MED DRAWER 7, Y5N ONE (09:55)
[2017-12-29] MEDS: PREGABALIN 50 MG CAPSULE PO SCH ×2 (09:59→21:35)
[2017-12-29] MEDS: SENNOSIDES/DOCUSATE COMBO (SENNA PLUS) TABLET (UD) PO SCH ×2 (09:59→21:38)
[2017-12-29] MEDS: clonazePAM 2 MG TABLET PO SCH ×2 (09:59→21:35)
[2017-12-29] MEDS: FERROUS SO4/VIT C/FA 1 EACH TABLET.ER PO SCH (09:59)
[2017-12-29] MEDS: ASPIRIN COATED 81 MG TABLET.EC PO SCH ×2 (09:59→21:35)
[2017-12-29] MEDS ORDERED: oxyCODONE HCL 10 MG SUSTAINED ACTING TABLET PO SCH (10:00)
[2017-12-29] MEDS: POLYETHYLENE GLYCOL 3350 119 GM BTL PO SCH ×2 (10:02→21:35)
[2017-12-29] MEDS ORDERED: FUROSEMIDE 40 MG/4 ML INJECTABLE VIAL IVPUSH SCH (11:15)
--- NOTE | 2017-12-29 11:39 | PN ---
Physical Exam: SUBJECTIVE: Patient seen and examined oob to chair. Feels less sluggish after first unit PRBC transfused. OBJECTIVE: Vital Signs Period Temp Pulse Resp BP Sys/Brar Pulse Ox Last 24 Hr 98.6 F-100.1 F 95-107 16-19 104-145/50-76 95-100 GENERAL: The patient is awake, alert, and fully oriented, in no acute distress. LUNGS: Breath sounds equal, clear to auscultation bilaterally, no wheezes, no crackles, no accessory muscle use. HEART: Regular rate and rhythm, S1, S2 ABDOMEN: Soft, nontender, nondistended LLE: Surgicel dressing at distal end of wound removed due to saturation; surgical anabelle in situ, edges well-approximated, healing ridge, no bleeding, no exudate; sterile dressing placed; drain putting out bright red sanguinous fluid 120cc's NEUROLOGICAL: Cranial nerves II through XII grossly intact. Normal speech, gait not observed. Laboratory Results - last 24 hr 12/28/17 12/29/17 12/29/17 16:15 05:35 05:35 WBC 11.9 H 9.0 RBC 3.03 L 2.42 L Hgb 8.4 L 6.9 L* Hct 25.5 L 20.4 L D MCV 84.0 84.5 MCH 27.6 28.4 MCHC 32.8 33.6 RDW 18.1 H 17.3 H Plt Count 122 L 116 L MPV 9.1 D 10.0 Magnesium 1.5 L Crossmatch 12/29/17 09:30 WBC RBC Hgb Hct MCV MCH MCHC RDW Plt Count MPV Magnesium Crossmatch See Detail Active Medications Generic Name Dose Route Start Last Admin Trade Name Freq PRN Reason Stop Dose Admin Acetaminophen 650 mg 12/26/17 00:00 12/29/17 05:05 Tylenol - PO 650 mg Q6H RADHA Administration Al Hydroxide/Mg Hydroxide 30 ml 12/25/17 15:19 Mylanta Oral Suspension - PO Q4H PRN DYSPEPSIA Aspirin 81 mg 12/25/17 22:00 12/29/17 09:59 Ecotrin - PO 81 mg BID RADHA Administration Bisacodyl 10 mg 12/28/17 19:26 12/28/17 19:53 Dulcolax Suppository - CT 10 mg DAILY PRN Administration CONSTIPATION Clonazepam 1 mg 12/28/17 10:30 12/29/17 09:59 Klonopin - PO 1 mg BID [facility] Administration Docusate Sodium 300 mg 12/28/17 22:00 12/28/17 21:29 Colace - PO Not Given [facility] Folic Acid/Iron 1 each 12/27/17 10:00 12/29/17 09:59 Folitab 500 Caplet - PO 1 each DAILY [facility] Administration Furosemide 40 mg 12/29/17 11:15 Lasix Injection - IVPUSH 12/29/17 17:00 [employer]ELD [employer] [facility] Gabapentin 600 mg 12/25/17 22:00 12/29/17 05:04 Neurontin - PO 600 mg TID [facility] Administration Levothyroxine Sodium 50 mcg 12/26/17 10:00 12/29/17 06:29 Synthroid - PO 50 mcg DAILY@0700 [facility] Administration Magnesium Hydroxide 30 ml 12/25/17 15:19 Milk Of Magnesia - PO PRN PRN CONSTIPATION Non-Formulary Medication 150 mg 12/26/17 14:00 12/27/17 06:15 Methylnaltrexone [place] [Relistor] PO Not Given TID [facility] Ondansetron HCl 4 mg 12/25/17 15:19 Zofran Injection IVPUSH Q6H PRN NAUSEA Oxycodone HCl 10 mg 12/29/17 09:53 Roxicodone - PO Q4H PRN PAIN SCALE 1-5 Oxycodone HCl 20 mg 12/29/17 11:30 Oxycontin - PO BID [facility] Pantoprazole Sodium 40 mg 12/26/17 10:00 12/29/17 07:36 Protonix - PO 40 mg DAILY [facility] Administration Polyethylene Glycol 17 gm 12/28/17 22:00 12/29/17 10:02 Miralax (For Daily Use) - PO Not Given BID [facility] Pregabalin 50 mg 12/26/17 10:00 12/29/17 09:59 Lyrica - PO 50 mg BID [facility] Administration Senna/Docusate Sodium 2 tablet 12/25/17 22:00 12/29/17 09:59 Pericolace - PO 2 tablet BID [facility] Administration Tamsulosin HCl 0.4 mg 12/26/17 10:00 12/29/17 07:50 Flomax - PO 0.4 mg DAILY@0830 RADHA Administration Post-operative transfusion history 12/26 2U PRBC 12/27 1U PRBC 12/29 2U PRBC ASSESSMENT/PLAN: 67 year-old male with a PMH significant for HTN, GERD, IBS, BPH, hypothyroidism , and anxiety. Admitted for revision left total hip replacement. Left total hip replacement revision surgery 12/25 Acute blood loss anemia --POD #4 --Hgb dropped 6.9, transfuse 2 units; this makes 5U PRBCs transfused post- operatively --clonazepam decreased to 1mg BID, oxycodone decreased to 10mg q4h --incentive spirometer, daily PT --ASA 81 BID --changed partial surgicel dressing due to saturation Hypertension --BP stable --not on anti-hypertensives BPH --continue tamsulosin GERD --continue protonix PO IBS --continue aggressive bowel regimen for constipation Hypothryrodism --continue levothyroxine FEN Fluids: PO intake adequate Electrolytes: replete as indicated Nutrition: low sodium DVT prophylaxis: SCDs, oob, ambulation Physical therapy Dispo: continues to require inpatient care. Full code. Visit type - Emergency Visit Emergency Visit: No - New Patient This patient is new to me today: No - Critical Care Critical Care patient: No
[2017-12-29] MEDS ORDERED: oxyCODONE HCL 10 MG SUSTAINED ACTING TABLET ONE ×2 (12:36→12:43)
[2017-12-29] MEDS: oxyCODONE HCL 10 MG SUSTAINED ACTING TABLET PO SCH ×2 (12:40→21:34)
[2017-12-29] MEDS: DOCUSATE SODIUM 100 MG CAPSULE (FP) PO SCH (21:35)
[2017-12-29] MEDS ORDERED: MAGNESIUM SULF 50% (8.12 MEQ/2 ML-1 GM VIAL) IVPB ONE (21:43)
[2017-12-29] MEDS ORDERED: MAGNESIUM SULFATE IN WATER 2 GM/50 ML IVPB IVPB ONE (22:21)
[2017-12-30] MEDS: ACETAMINOPHEN 325 MG TABLET (FP) PO SCH ×3 (06:11→18:16)
[2017-12-30] MEDS: GABAPENTIN 300 MG CAPSULE (FP) PO SCH ×3 (06:11→21:05)
[2017-12-30] MEDS: LEVOTHYROXINE NA 50 MCG TABLET (FP) PO SCH (06:12)
--- NOTE | 2017-12-30 07:43 | PN ---
Progress Note (short form) - Note Progress Note: POD 5 Pt seen and examined. States he is doing well this AM. Pain is well controlled. Toelrating PO, voiding without issue, has been oob with PT. Denies cp/sob, n/v/d , dizziness, calf pain/edema. Vital Signs Temp 97.7 F 12/30/17 04:30 Pulse 82 12/30/17 04:30 Resp 16 12/30/17 04:30 BP 127/65 12/30/17 04:30 Pulse Ox 99 12/30/17 04:30 Intake & Output 12/29/17 12/29/17 12/30/17 11:59 23:59 11:59 Intake Total 350 Output Total 2510 Balance -2160 Intake: Packed Cells 350 Output: Drainage 60 Left Lower Leg 60 Urine 2450 Void 2450 Other: Voiding Method Urinal # Unmeasured Voids Void 1 Bowel Movement CBC, BMP 12/30/17 07:30 12/30/17 07:30 Gen: awake, alert, nad, laying in bed Resp: cta b/l CV: rrr, s1s2 Ext: L dressing in place, with minimally serosanguinous staining. HV in place, minimal serosanguinous output in reservoir. B/L EHL/FHL/DF/PF 5/, SILT B/L A/P: 67 y/o M w/ PMHx HTN, GERD, IBS, BPH, hypothyroidism, and anxiety, now s/p revision left total hip replacement on 12/25. S/P 5 units pRBC in total, 2 pRBC transfused yesterday. H/H responded appropriately. VSS this AM, pt with low grade fever yesterday afternoon 100.1. Tachy and hypotensive. Transfuse pRBC to keep hct >30 Pain control as ordered DVT prophylaxis ASA 81mg bid, scds, teds Bowel regimen Remote tele/continuous pulse ox Monitor VS Monitor I&Os, keep ULI in place at this time Incentive spirometry WBAT PT Neurovascular checks per protocol above d/w attending Dr Jericho Alcantara
--- NOTE | 2017-12-30 07:58 | PN ---
Physical Exam: SUBJECTIVE: Patient seen and examined, ambulatory in hallway with physical therapist,using walker, patient reports minimal pain to the left lower extermity , denies any chest pain or shortness of breath. OBJECTIVE:patient is a 67 y/o male with a pmh of htn, oa, ibs, bph, and anxiety. patient was admitted to the medical surgical floor after a left hip revision with THR, 12/25/17. Vital Signs Period Temp Pulse Resp BP Sys/Brar Pulse Ox Last 24 Hr 97.7 F-99 F 82-102 16-19 103-127/52-66 95-100 GENERAL: The patient is awake, alert, and fully oriented, in no acute distress. HEAD: Normal with no signs of trauma. EYES: PERRL, extraocular movements intact, sclera anicteric, conjunctiva clear. No ptosis. ENT: Ears normal, nares patent, oropharynx clear without exudates, moist mucous membranes. NECK: Trachea midline, full range of motion, supple. LUNGS: Breath sounds equal, clear to auscultation bilaterally, no wheezes, no crackles, no accessory muscle use. HEART: Regular rate and rhythm, S1, S2 without murmur, rub or gallop. ABDOMEN: Soft, nontender, nondistended, normoactive bowel sounds, no guarding, no rebound, no hepatosplenomegaly, no masses. EXTREMITIES: 2+ pulses, warm, well-perfused, no edema, left lower extremity: hemovac drain 140ml within the past 12 hours, dressing CDI, less than 3 second capillary refill +3 pedal pulse, scd/candido NEUROLOGICAL: Cranial nerves II through XII grossly intact. Normal speech, shuffle gait noted. PSYCH: Normal mood, normal affect. SKIN: Warm, dry, normal turgor, no rashes or lesions noted Laboratory Results - last 24 hr CBC WBC 6.6 K/mm3 (4.0-10.8) 12/30/17 07:30 RBC 3.14 M/mm3 (4.00-5.60) L 12/30/17 07:30 Hgb 8.9 GM/dl (11.7-16.9) L 12/30/17 07:30 Hct 27.1 % (35.4-49) L D 12/30/17 07:30 MCV 86.2 fl (80-96) 12/30/17 07:30 MCH 28.4 pg (25.7-33.7) 12/30/17 07:30 MCHC 32.9 g/dl (32.0-35.9) 12/30/17 07:30 RDW 16.1 % (11.9-15.9) H 12/30/17 07:30 Plt Count 147 K/MM3 (134-434) D 12/30/17 07:30 MPV 8.7 fl (7.5-11.1) D 12/30/17 07:30 Absolute Neuts (auto) 4.1 K/mm3 12/30/17 07:30 Neutrophils % 60.8 % (42.8-82.8) 12/30/17 07:30 Neutrophils % (Manual) 79.0 % (42.8-82.8) 12/26/17 11:49 Lymphocytes % 24.2 % (8-40) D 12/30/17 07:30 Lymphocytes % (Manual) 10.0 % (8-40) 12/26/17 11:49 Monocytes % 8.2 % (3.8-10.2) 12/30/17 07:30 Monocytes % (Manual) 11 % (3.8-10.2) H 12/26/17 11:49 Eosinophils % 6.1 % (0-4.5) H D 12/30/17 07:30 Basophils % 0.7 % (0-2.0) 12/30/17 07:30 CMP Sodium 140 mmol/L (136-145) 12/30/17 07:30 Potassium 3.8 mmol/L (3.5-5.1) 12/30/17 07:30 Chloride 101 mmol/L (98-107) 12/30/17 07:30 Carbon Dioxide 32 mmol/L (22-28) H D 12/30/17 07:30 Anion Gap 7 MMOL/L (8-16) L 12/30/17 07:30 BUN 11 mg/dl (7-18) 12/30/17 07:30 Creatinine 0.6 mg/dl (0.6-1.3) 12/30/17 07:30 Creat Clearance w eGFR > 60 (>60) 12/30/17 07:30 Random Glucose 103 mg/dl (74-106) D 12/30/17 07:30 Calcium 7.9 mg/dl (8.4-10.2) L 12/30/17 07:30 Phosphorus 3.1 mg/dl (2.5-4.6) D 12/30/17 09:35 Magnesium 1.8 mg/dL (1.8-2.4) 12/30/17 07:30 Total Bilirubin 0.7 mg/dl (0.2-1.0) 12/30/17 07:30 AST 25 U/L (10-42) 12/30/17 07:30 ALT 14 U/L (10-40) 12/30/17 07:30 Alkaline Phosphatase 47 U/L (32-92) 12/30/17 07:30 Total Protein 4.8 g/dl (6.4-8.3) L 12/30/17 07:30 Albumin 2.3 g/dl (3.5-5.0) L 12/30/17 07:30 12/29/17 09:30 WBC RBC Hgb Hct MCV MCH MCHC RDW Plt Count MPV Magnesium Blood Type B POSITIVE Antibody Screen Negative Crossmatch See Detail Active Medications Generic Name Dose Route Start Last Admin Trade Name Freq PRN Reason Stop Dose Admin Acetaminophen 650 mg 12/26/17 00:00 12/30/17 06:11 Tylenol - PO 650 mg Q6H RADHA Administration Al Hydroxide/Mg Hydroxide 30 ml 12/25/17 15:19 Mylanta Oral Suspension - PO Q4H PRN DYSPEPSIA Aspirin 81 mg 12/25/17 22:00 12/29/17 21:35 Ecotrin - PO 81 mg BID RADHA Administration Bisacodyl 10 mg 12/28/17 19:26 12/28/17 19:53 Dulcolax Suppository - [place] 10 mg DAILY PRN Administration CONSTIPATION Clonazepam 1 mg 12/28/17 10:30 12/29/17 21:35 Klonopin - PO 1 mg BID RADHA Administration Docusate Sodium 300 mg 12/28/17 22:00 12/29/17 21:35 Colace - PO Not Given HS [facility] Folic Acid/Iron 1 each 12/27/17 10:00 12/29/17 09:59 Folitab 500 Caplet - PO 1 each DAILY [facility] Administration Gabapentin 600 mg 12/25/17 22:00 12/30/17 06:11 Neurontin - PO 600 mg TID [facility] Administration Levothyroxine Sodium 50 mcg 12/26/17 10:00 12/30/17 06:12 Synthroid - PO 50 mcg DAILY@0700 [facility] Administration Magnesium Hydroxide 30 ml 12/25/17 15:19 Milk Of Magnesia - PO PRN PRN CONSTIPATION Non-Formulary Medication 150 mg 12/26/17 14:00 12/27/17 06:15 Methylnaltrexone [place] [Relistor] PO Not Given TID [facility] Ondansetron HCl 4 mg 12/25/17 15:19 Zofran Injection IVPUSH Q6H PRN NAUSEA Oxycodone HCl 10 mg 12/29/17 09:53 Roxicodone - PO Q4H PRN PAIN SCALE 1-5 Oxycodone HCl 20 mg 12/29/17 11:30 12/29/17 21:34 Oxycontin - PO 20 mg BID [facility] Administration Pantoprazole Sodium 40 mg 12/26/17 10:00 12/29/17 19:50 Protonix - PO Not Given DAILY [facility] Polyethylene Glycol 17 gm 12/28/17 22:00 12/29/17 21:35 Miralax (For Daily Use) - PO Not Given BID [facility] Pregabalin 50 mg 12/26/17 10:00 12/29/17 21:35 Lyrica - PO 50 mg BID [facility] Administration Senna/Docusate Sodium 2 tablet 12/25/17 22:00 12/29/17 21:38 Pericolace - PO Not Given BID [facility] Tamsulosin HCl 0.4 mg 12/26/17 10:00 12/29/17 07:50 Flomax - PO 0.4 mg DAILY@0830 [facility] Administration ASSESSMENT/PLAN: 1 Left total hip replacement revision surgery 12/25, POD #5 Acute blood loss anemia - repeat hgb today 8.9 stable, received a total of 5 units post operatively, close following of h/h and drain output --incentive spirometer, daily PT 2) cardiovascular Hypertension - b/p labile will continue to hold evening dose lisinopril 3) BPH - continue tamsulosin 5) GI GERD -continue protonix PO IBS -continue aggressive bowel regimen for constipation 6) enodo Hypothryrodism -continue levothyroxine FEN Fluids: PO intake adequate Electrolytes: replete as indicated Nutrition: low sodium DVT prophylaxis: SCDs, oob, ambulation Physical therapy Dispo: continues to require inpatient care. Full code. Visit type - Emergency Visit Emergency Visit: No - New Patient This patient is new to me today: No - Critical Care Critical Care patient: No - Discharge Referral Referred to [facility] No
[2017-12-30 08:10] LABS: BASO % 0.7 % (0-2.0); EOS % 6.1 % (0-4.5); HEMATOCRIT 27.1 % (35.4-49); HEMOGLOBIN 8.9 GM/dl (11.7-16.9); LYMPH % 24.2 % (8-40); MCH 28.4 pg (25.7-33.7); MCHC 32.9 g/dl (32.0-35.9); MEAN CELL VOLUME 86.2 fl (80-96); MEAN PLT VOLUME 8.7 fl (7.5-11.1); MONO % 8.2 % (3.8-10.2); NEUT % 60.8 % (42.8-82.8); PLATELET COUNT 147 K/MM3 (134-434); RBC 3.14 M/mm3 (4.00-5.60); RDW 16.1 % (11.9-15.9); WHITE BLOOD COUNT 6.6 K/mm3 (4.0-10.8)
[2017-12-30 08:19] LABS: ALBUMIN 2.3 g/dl (3.5-5.0); ALK PHOS 47 U/L (32-92); ANION GAP 7 MMOL/L (8-16); BILIRUBIN,TOTAL 0.7 mg/dl (0.2-1.0); BLOOD UREA NITROGEN 11 mg/dl (7-18); CALCIUM 7.9 mg/dl (8.4-10.2); CHLORIDE 101 mmol/L (98-107); CO2 32 mmol/L (22-28); CREATININE 0.6 mg/dl (0.6-1.3); GLUCOSE,RANDOM 103 mg/dl (74-106); MAGNESIUM 1.8 mg/dL (1.8-2.4); POTASSIUM 3.8 mmol/L (3.5-5.1); SGOT/AST 25 U/L (10-42); SGPT/ALT 14 U/L (10-40); SODIUM 140 mmol/L (136-145); TOT PROT 4.8 g/dl (6.4-8.3)
[2017-12-30] MEDS: TAMSULOSIN HCL 0.4 MG CAP PO SCH (08:29)
[2017-12-30] MEDS: ASPIRIN COATED 81 MG TABLET.EC PO SCH ×2 (09:29→21:05)
[2017-12-30] MEDS: oxyCODONE HCL 10 MG SUSTAINED ACTING TABLET PO SCH ×2 (09:30→21:06)
[2017-12-30] MEDS: SENNOSIDES/DOCUSATE COMBO (SENNA PLUS) TABLET (UD) PO SCH ×2 (09:30→21:08)
[2017-12-30] MEDS: PREGABALIN 50 MG CAPSULE PO SCH ×2 (09:30→21:06)
[2017-12-30] MEDS: clonazePAM 2 MG TABLET PO SCH ×2 (09:30→21:05)
[2017-12-30] MEDS: PANTOPRAZOLE 40 MG TABLET (FP) PO SCH (09:31)
[2017-12-30] MEDS: POLYETHYLENE GLYCOL 3350 119 GM BTL PO SCH ×2 (11:34→21:07)
[2017-12-30] MEDS: FERROUS SO4/VIT C/FA 1 EACH TABLET.ER PO SCH (11:34)
--- NOTE | 2017-12-30 12:37 | PATH ---
Surgical Pathology Report Patient Name: NICK BYRNES Med. Rec. #: [id number] /Age/Gender: 1950 (Age: 67) / M Account: [id number] Location: [facility] MED-SURG Taken: 12/25/2017 Received: 12/25/2017 Reported: 12/30/2017 Physicians: Lalit Alcantara M.D. Specimen(s) Received A: LEFT HIP TISSUE (FS) B: LEFT HIP EXPLANTED HARDWARE Clinical History Loosened left total hip arthroplasty Intraoperative Consult Diagnosis Left hip tissue, frozen section: 1-2 neutrophils in rare high power carter in bilingual sales representative tissue. Cris Dotson 12/25/17 Final Diagnosis A. HIP TISSUE, LEFT, EXCISION: FIBROSYNOVIAL TISSUE SHOWING FIBRINOHEMORRHAGIC EXUDATE, REACTIVE SYNOVIAL HYPERPLASIA WITH RARE HIGH POWER CARTER (HPF) SHOWING 1-2 NEUTROPHILS. CARTILAGE AND BONE WITH NO PATHOLOGIC FINDINGS. B. LEFT HIP EXPLANTED HARDWARE: HARDWARE, DESCRIBED (GROSS EXAMINATION ONLY). Electronically Signed Karina Gray M.D. Gross Description A. Received fresh for frozen section evaluation, labeled "left hip tissue" are five portions of red and vieyra soft to fibrous tissue ranging from 1.5-2.8 cm in greatest dimension with an aggregate of 3.8 x 2.5 x 1 cm. There are small portions of bone at one aspect of two of the tissue fragments. Frozen section is performed on bilingual sales representative tissue. Pearler sections are submitted in four cassettes with the frozen section residue in cassette FS1. B. Received without fixative, labeled "left hip explanted hardware" are two pieces of round white plastic hardware measuring 3 cm and 5.5 cm in diameter , respectively. Also received is metallic hardware measuring 17 x 5 x 2 cm. For gross examination only. AE/12/27/2017 ebram/12/25/2017
[2017-12-30] MEDS: oxyCODONE HCL 5 MG TABLET PO PRN ×2 (12:49→21:05)
[2017-12-30] MEDS: DOCUSATE SODIUM 100 MG CAPSULE (FP) PO SCH (21:07)
[2017-12-30] MEDS ORDERED: PT OWN MED DRAWER 7, Y5N ONE (21:13)
[2017-12-31] MEDS: GABAPENTIN 300 MG CAPSULE (FP) PO SCH ×2 (05:25→14:13)
[2017-12-31] MEDS: ACETAMINOPHEN 325 MG TABLET (FP) PO SCH ×3 (05:25→12:09)
[2017-12-31] MEDS: LEVOTHYROXINE NA 50 MCG TABLET (FP) PO SCH (07:30)
[2017-12-31 08:14] LABS: ANION GAP 6 MMOL/L (8-16); BLOOD UREA NITROGEN 11 mg/dl (7-18); CHLORIDE 101 mmol/L (98-107); CO2 30 mmol/L (22-28); CREATININE 0.7 mg/dl (0.6-1.3); GLUCOSE,RANDOM 103 mg/dl (74-106); MAGNESIUM 1.7 mg/dL (1.8-2.4); PHOSPHOROUS 2.8 mg/dl (2.5-4.6); POTASSIUM 3.6 mmol/L (3.5-5.1); SODIUM 137 mmol/L (136-145)
[2017-12-31 08:17] LABS: BASO % 0.5 % (0-2.0); EOS % 6.6 % (0-4.5); LYMPH % 16.5 % (8-40); MONO % 9.7 % (3.8-10.2); NEUT % 66.7 % (42.8-82.8); PLATELET COUNT 197 K/MM3 (134-434); WHITE BLOOD COUNT 6.7 K/mm3 (4.0-10.8)
[2017-12-31 08:19] LABS: HEMATOCRIT 30.7 % (35.4-49); MCH 28.2 pg (25.7-33.7); MCHC 32.6 g/dl (32.0-35.9); MEAN CELL VOLUME 86.3 fl (80-96); MEAN PLT VOLUME 8.2 fl (7.5-11.1); RBC 3.56 M/mm3 (4.00-5.60); RDW 15.7 % (11.9-15.9)
--- NOTE | 2017-12-31 08:35 | DS ---
"Physical Exam: SUBJECTIVE: Patient seen and examined, he states that he is feeling tired today OBJECTIVE: Vital Signs Period Temp Pulse Resp BP Sys/Brar Pulse Ox Last 24 Hr 98.0 F-99.6 F 89-97 18-19 111-144/49-72 96-98 PHYSICAL EXAM GENERAL: The patient is awake, alert, and fully oriented, in no acute distress. LUNGS: Breath sounds equal, clear to auscultation bilaterally, no wheezes, no crackles, no accessory muscle use. HEART: Regular rate and rhythm, S1, S2 without murmur, rub or gallop. ABDOMEN: Soft, nontender, nondistended EXTREMITIES: 2+ pulses, warm, well-perfused, no edema. SCD/TEDS in place Left hip: dressing c/d/i in superior aspect(orginal from the OR), distal 4 inches with anabelle and dry dressing in place, replaced with 4x4 gauze/tegaderm. Drain removed and ozzing, pressure dressing applied with kerlix and nancy wrap. Incision remains c/d/i with anabelle. LABS Laboratory Results - last 24 hr 12/26/17 12/29/17 12/30/17 11:49 09:30 07:30 WBC RBC Hgb Hct MCV MCH MCHC RDW Plt Count MPV Absolute Neuts (auto) Neutrophils % Lymphocytes % Monocytes % Eosinophils % Basophils % Sodium 140 Potassium 3.8 Chloride 101 Carbon Dioxide 32 H D Anion Gap 7 L BUN 11 Creatinine 0.6 Creat Clearance w eGFR > 60 Random Glucose 103 D Calcium 7.9 L Phosphorus Magnesium 1.8 Total Bilirubin 0.7 AST 25 ALT 14 Alkaline Phosphatase 47 Total Protein 4.8 L Albumin 2.3 L Blood Type B POSITIVE B POSITIVE Antibody Screen Negative Negative Crossmatch See Detail See Detail 12/30/17 12/31/17 12/31/17 09:35 07:32 07:32 WBC 6.7 RBC 3.56 L Hgb 10.0 L Hct 30.7 L MCV 86.3 MCH 28.2 MCHC 32.6 RDW 15.7 Plt Count 197 D MPV 8.2 Absolute Neuts (auto) 4.5 Neutrophils % 66.7 Lymphocytes % 16.5 D Monocytes % 9.7 Eosinophils % 6.6 H Basophils % 0.5 Sodium 137 Potassium 3.6 Chloride 101 Carbon Dioxide 30 H Anion Gap 6 L BUN 11 Creatinine 0.7 Creat Clearance w eGFR > 60 Random Glucose 103 Calcium 8.0 L Phosphorus 3.1 D 2.8 Magnesium 1.7 L Total Bilirubin AST ALT Alkaline Phosphatase Total Protein Albumin Blood Type Antibody Screen Crossmatch Laboratory Tests 12/31/17 13:44 WBC 7.6 Hgb 10.1 L Hct 30.3 L Plt Count 208 HOSPITAL COURSE: The patient was admitted to the Med-Surg Unit after an elective repair of their left DRAKE stem subsidence. Now, s/p revision of left hip replacement. An xray was obtained in the OR and confirmed hardware placement in good position with no fractures or dislocations.The patient ambulated the hallways with assistance and with Physical Therapy. Narcotic and non-narcotic pain management control was achieved with an oral and IV approach. POD #6, the surgical drain was removed fully intact and without incident. Mena-operative IV ABX were administered. DVT prophylaxis was achieved with SCDs, early ambulation and aspirin 81 mg twice a day. The patient required 6 units of Packed red blood cells during his hospital admission. His H&H was 10/30(times two) upon discharge and he was placed on iron. The patient ambulated with Physical Therapy after the drain removal and his dressing remained dry. He was discharged to rehab. Above plan discussed with Dr. Alcantara and agreed. Date of Admission:12/25/17 Date of Discharge: 12/31/17 Discharge Summary Reason For Visit: OSTEOARTHRITIS LEFT HIP Current Active Problems History of total left hip arthroplasty (Acute) Condition: Good - Instructions Diet, Activity, Other Instructions: Dr. Alcantara Discharge Instructions for Hip Replacement Post Operative Instructions Physical activity Physical Therapist will come to your home for the first 5 days. You will be set up with outpatient PT at your first post-operative visit. Use assistive devices for ambulation at all times. Weight bearing as tolerated on your surgical side. Wound care Leave your surgical dressing in place. Inferior aspect replace gauze and tegaderm daily and wrap inferior aspect with nancy wrap. No baths or showers. Do not submerge your incision. Do not apply any ointments or lotions to your incision. Please call the office if your dressing is soiled/dirty or is falling off. Apply Graduated Compression Stockings (TEDS) to both lower extremities- remove daily for hygiene ONLY. Diet There are no dietary restrictions. Eat healthy, high-fiber foods. Drink 6 to 8 glasses of liquid each day. This will assist in keeping your bowels are regular. Pain management Any pain prescription medication ordered should be taken as prescribed for moderate to severe pain. Do not take additional Tylenol while taking Percocet. Posterior Hip Precautions: Do not cross the leg you had surgery on over your other leg. (Do not cross your legs.)Use an elevated toilet seat. Do not sit on low chairs or beds. Use purple pillow (abductor) when lying in bed. Take Aspirin 81 mg two times a day for a total of 6 weeks to prevent blood clots. Call Dr. Alcantara for any of the following: Severe pain not relieved by medication Fever of 101 or higher Excessive bleeding or drainage on dressing Inability to urinate If you experience chest pain or shortness of breath, please seek emergency care immediately. Please call the office at to confirm your post-op appointment for the week following surgery. Please follow Hemoglobin/hemocrit This report was requested by: Aileen Bradford | Reference #: [id number] 12/04/2017 12/05/2017 clonazepam 2 mg tablet 60 30 Lalit Alcantara MS, MD 12/04/2017 12/05/2017 oxycodone hcl 30 mg tablet 120 30 Lalti Alcantara MS, MD Disposition: [facility] - Home Medications Comprehensive Discharge Medication List: Ambulatory Orders Baclofen 10 mg PO DAILY 07/17/17 Bisacodyl [Dulcolax] 15 mg PO HS 07/17/17 Clonazepam [Klonopin] 2 mg PO BID 07/17/17 Dexlansoprazole [Dexilant] 60 mg PO DAILY 07/17/17 Domperidone 10 mg PO DAILY 07/17/17 Gabapentin [Neurontin] 600 mg PO TID 07/17/17 Levothyroxine [Synthroid -] 50 mcg PO DAILY 07/17/17 Lisinopril 10 mg PO HS 07/17/17 Methylnaltrexone [place] [Relistor] 150 mg PO TID 07/17/17 Oxycodone HCl 30 mg PO TID 07/17/17 Pregabalin [Lyrica -] 50 mg PO BID 07/17/17 Tamsulosin HCl 0.4 mg PO DAILY 07/17/17 Aspirin [ASA -] 81 mg PO BID #90 tab.chew 07/26/17 Aspirin Coated [Ecotrin -] 81 mg PO BID tablet.ec 12/31/17 Bisacodyl Suppository [Dulcolax Suppository -] 10 mg HI DAILY PRN supp.rect 08/12 Docusate Sodium [Colace -] 300 mg PO HS capsule 12/31/17 Ferrous Sulfate/Vit C/FA [Folitab 500 Caplet -] 1 each PO DAILY tablet.er 12/31 Mag Hydrox/Al Hydrox/[place] [Mylanta Oral Suspension -] 30 ml PO Q4H PRN cup Pantoprazole Sodium [Protonix -] 40 mg PO DAILY tablet.ec 12/31/17 This patient is new to me today: No Emergency Visit: No Critical Care patient: No - Discharge Referral Referred to [facility] No"
[2017-12-31] MEDS ORDERED: PT OWN MED DRAWER 7, Y5N ONE (09:14)
[2017-12-31] MEDS: PREGABALIN 50 MG CAPSULE PO SCH (09:33)
[2017-12-31] MEDS: ASPIRIN COATED 81 MG TABLET.EC PO SCH (09:33)
[2017-12-31] MEDS: TAMSULOSIN HCL 0.4 MG CAP PO SCH (09:34)
[2017-12-31] MEDS: FERROUS SO4/VIT C/FA 1 EACH TABLET.ER PO SCH (09:34)
[2017-12-31] MEDS: SENNOSIDES/DOCUSATE COMBO (SENNA PLUS) TABLET (UD) PO SCH (09:34)
[2017-12-31] MEDS: oxyCODONE HCL 5 MG TABLET PO PRN ×2 (09:35→15:10)
[2017-12-31] MEDS: clonazePAM 2 MG TABLET PO SCH (09:35)
[2017-12-31] MEDS: PANTOPRAZOLE 40 MG TABLET (FP) PO SCH (09:35)
[2017-12-31] MEDS: oxyCODONE HCL 10 MG SUSTAINED ACTING TABLET PO SCH (09:36)
[2017-12-31] MEDS: POLYETHYLENE GLYCOL 3350 119 GM BTL PO SCH (09:41)
[2017-12-31 13:59] LABS: BASO % 2.6 % (0-2.0); EOS % 6.2 % (0-4.5); HEMATOCRIT 30.3 % (35.4-49); HEMOGLOBIN 10.1 GM/dl (11.7-16.9); LYMPH % 17.3 % (8-40); MCH 28.7 pg (25.7-33.7); MCHC 33.5 g/dl (32.0-35.9); MEAN CELL VOLUME 85.7 fl (80-96); MEAN PLT VOLUME 8.3 fl (7.5-11.1); NEUT % 65.9 % (42.8-82.8); PLATELET COUNT 208 K/MM3 (134-434); RBC 3.53 M/mm3 (4.00-5.60); RDW 15.4 % (11.9-15.9); WHITE BLOOD COUNT 7.6 K/mm3 (4.0-10.8)
[2017-12-31 14:15] VITALS: BP 125/54; PULSE 96; TEMP 98.6
== END 2017-12-31 16:39 | DRG 467 ==
LOC: FM/S 08:26
PROVIDERS: ADMIT Orthopaedic Surgery Orthopaedic Surgery of the Spine; ATTEND Orthopaedic Surgery Orthopaedic Surgery of the Spine
PROC: 0SPB0JZ Removal of Synthetic Substitute from Left Hip Joint, Open Approach (ICD-10-PCS; 2017-12-25)
PROC: 0SRB0JA Replacement of Left Hip Joint with Synthetic Substitute, Uncemented, Open Approach (ICD-10-PCS; principal; 2017-12-25 12:51)
PROC: 30233N1 Transfusion of Nonautologous Red Blood Cells into Peripheral Vein, Percutaneous Approach (ICD-10-PCS; 2017-12-26)
DX: T84.031A Mechanical loosening of internal left hip prosthetic joint, initial encounter (principal); D62 Acute posthemorrhagic anemia; Y83.8 Other surgical procedures as the cause of abnormal reaction of the patient, or of later complication, without mention of misadventure at the time of the procedure; I10 Essential (primary) hypertension; K21.9 Gastro-esophageal reflux disease without esophagitis; K58.9 Irritable bowel syndrome, unspecified; N40.0 Benign prostatic hyperplasia without lower urinary tract symptoms; E03.9 Hypothyroidism, unspecified; F41.8 Other specified anxiety disorders; M19.90 Unspecified osteoarthritis, unspecified site; I95.89 Other hypotension; Z86.711 Personal history of pulmonary embolism; Z96.642 Presence of left artificial hip joint
CPT/HCPCS: 36415; 36430; 36511; 71045-TC-FY; 73502-TC-LT-FY; 73552-TC-LT-FY; 80048; 80053; 83735; 84100; 85025; 85027; 86850; 86900; 86901; 86922; 88300-TC; 88305-TC; 88311-TC; 88331-TC; 93971-TC; 94760; 97116-GP; 97161-GP; J1644; J7030; P9038; P9058

== ENCOUNTER 2022-04-11 08:50 | Day surgery (SDC) | payer OTHER ==
[2022-04-09 12:09] VITALS: BMI 27.8
[2022-04-11] MEDS ORDERED: CEFAZOLIN 2 GM in DEXTROSE 5%-WATER - 50 ML IVPB ONE (09:55)
[2022-04-11] MEDS ORDERED: TRANEXAMIC ACID 1000 MG/10 ML VIAL IVPUSH ONE (09:55)
[2022-04-11] MEDS ORDERED: ROPIVACAINE HCL 0.5% 30ML VIAL ONE (10:55)
[2022-04-11] MEDS ORDERED: BUPIVACAINE HCL 50 ML ONE (10:56)
[2022-04-11] MEDS ORDERED: MIDAZOLAM HCL 2 MG/2 ML SINGLE DOSE VIAL ONE (10:57)
[2022-04-11] MEDS ORDERED: PROPOFOL 20 ML ONE (10:57)
[2022-04-11 11:03] LABS: HEMATOCRIT 34.2 % (35.4-49); HEMOGLOBIN 12.1 G/dL (11.7-16.9); INR 1.46 (0.83-1.09); MCH 30.9 pg (25.7-33.7); MCHC 35.4 g/dl (32.0-35.9); MEAN CELL VOLUME 87.4 fl (80-96); MEAN PLT VOLUME 8.7 fl (7.5-11.1); PLATELET COUNT 141.2 10^3/uL (134-434); PROTHROMBIN TIME (PATIENT) 16.8 SEC (9.7-13.0); RBC 3.91 10^6/uL (4.00-5.60); RDW 14.5 % (11.9-15.9); WHITE BLOOD COUNT 4.6 10^3/uL (4.0-10.8)
[2022-04-11] MEDS ORDERED: ROCURONIUM BROMIDE 50 MG/5 ML SYRINGE ONE ×2 (12:03→13:11)
[2022-04-11] MEDS ORDERED: ePHEDrine SULFATE 50 MG/1 ML AMPULE ONE (12:21)
[2022-04-11] MEDS ORDERED: LIDOCAINE HCL/PF 2% SDV 5ML VIAL ONE (12:28)
[2022-04-11] MEDS ORDERED: ceFAZolin SODIUM 1 GM VIAL ONE (12:28)
[2022-04-11] MEDS ORDERED: VANCOMYCIN 1,000 MG VIAL (RESTRICTED TO ID ONLY) ONE (12:28)
[2022-04-11] MEDS ORDERED: TRANEXAMIC ACID 1000 MG/10 ML VIAL ONE ×2 (12:37→14:31)
[2022-04-11] MEDS ORDERED: SUGAMMADEX SODIUM 200 MG/2 ML VIAL ONE (14:33)
[2022-04-11] MEDS ORDERED: clonazePAM 0.5 MG TABLET PO PRN (15:05)
[2022-04-11] MEDS ORDERED: MAG HYDROX/AL HYDROX/SIMETH 30 ML UNIT-DOSE CUP PO PRN (15:06)
[2022-04-11] MEDS ORDERED: ONDANSETRON 4 MG/2 ML VIAL IVPUSH PRN ×2 (15:06→15:12)
[2022-04-11] MEDS ORDERED: MAGNESIUM HYDROX 2400MG/30ML ORAL SUSPENSION 30 ML CUP PO PRN (15:06)
[2022-04-11] MEDS ORDERED: HYDROmorphone HCL/PF 1 MG/ML VIAL ONE ×2 (15:13→15:26)
[2022-04-11] MEDS ORDERED: KETOROLAC TROMETHAMINE 30 MG/1 ML VIAL ONE (15:13)
[2022-04-11] MEDS ORDERED: ACETAMINOPHEN INJECTION 0 ML IVPB ONE (15:14)
[2022-04-11] MEDS ORDERED: DOMPERIDONE 10 MG PO SCH (15:15)
[2022-04-11] MEDS: HYDROmorphone HCl 2 MG/ML VIAL IVPB ONE ×4 (15:15→15:45)
[2022-04-11] MEDS ORDERED: LACTATED RINGERS SOLUTION 1,000 ML IV SCH ×2 (15:15)
[2022-04-11] MEDS ORDERED: KETOROLAC TROMETHAMINE 30 MG/1 ML VIAL IVPUSH ONE (15:15)
[2022-04-11] MEDS ORDERED: oxyCODONE HCL 5 MG TABLET PO PRN ×2 (15:16)
[2022-04-11] MEDS: oxyCODONE HCL 5 MG TABLET PO SCH ×2 (17:51→23:47)
[2022-04-11] MEDS: CEFAZOLIN SODIUM 2 GM in DEXTROSE 5%-WATER 100 ML IVPB SCH (18:51)
[2022-04-11] MEDS: BISACODYL 5 MG TABLET.DR (FP) PO SCH (21:09)
[2022-04-11] MEDS: ASPIRIN COATED 81 MG TABLET.EC PO SCH (21:09)
[2022-04-11] MEDS: GABAPENTIN 300 MG CAPSULE PO SCH (21:09)
[2022-04-11] MEDS: LISINOPRIL 20 MG TABLET PO SCH (21:10)
[2022-04-11] MEDS: CELECOXIB 100 MG CAPSULE PO SCH (21:10)
[2022-04-11] MEDS: PREGABALIN 50 MG CAPSULE PO SCH (21:10)
[2022-04-11] MEDS ORDERED: METHYLNALTREXONE BROMIDE PO SCH (22:00)
[2022-04-11] MEDS: SENNOSIDES/DOCUSATE COMBO (SENNA PLUS) TABLET (UD) PO SCH (22:02)
[2022-04-12] MEDS: CEFAZOLIN SODIUM 2 GM in DEXTROSE 5%-WATER 100 ML IVPB SCH ×2 (01:00→06:01)
[2022-04-12] MEDS: GABAPENTIN 300 MG CAPSULE PO SCH ×3 (06:01→21:13)
[2022-04-12] MEDS: oxyCODONE HCL 5 MG TABLET PO SCH ×3 (06:01→18:25)
[2022-04-12] MEDS: PREGABALIN 50 MG CAPSULE PO SCH ×3 (06:01→21:13)
[2022-04-12] MEDS: LEVOTHYROXINE NA 50 MCG TABLET (FP) PO SCH (06:08)
[2022-04-12 08:57] LABS: HEMOGLOBIN 10.9 G/dL (11.7-16.9); MCH 29.9 pg (25.7-33.7); MCHC 34.2 g/dl (32.0-35.9); MEAN CELL VOLUME 87.4 fl (80-96); MEAN PLT VOLUME 9.2 fl (7.5-11.1); RBC 3.66 10^6/uL (4.00-5.60); RDW 14.9 % (11.9-15.9); WHITE BLOOD COUNT 7.5 10^3/uL (4.0-10.8)
[2022-04-12] MEDS: TAMSULOSIN HCL 0.4 MG CAP PO SCH (09:00)
[2022-04-12 09:09] LABS: CREATININE 0.8 mg/dl (0.55-1.3)
[2022-04-12] MEDS: SENNOSIDES/DOCUSATE COMBO (SENNA PLUS) TABLET (UD) PO SCH ×2 (09:12→21:17)
[2022-04-12] MEDS: BACLOFEN 10 MG TABLET (FP) PO SCH (09:13)
[2022-04-12] MEDS: CELECOXIB 100 MG CAPSULE PO SCH ×2 (09:13→21:17)
[2022-04-12] MEDS: MULTIVITAMINS (DAILY MVI) TABLET (FP) PO SCH (09:13)
[2022-04-12] MEDS: PATIENT'S OWN MEDICATION (NON-FORMULARY) (Dexlansoprazole [Dexilant] 60 MG Cap.Dr.Bp) PO SCH (09:13)
[2022-04-12] MEDS: ASPIRIN COATED 81 MG TABLET.EC PO SCH ×2 (09:13→21:16)
[2022-04-12] MEDS ORDERED: PANTOPRAZOLE 40 MG TABLET PO SCH (10:00)
[2022-04-12] MEDS: BISACODYL 5 MG TABLET.DR (FP) PO SCH (21:16)
[2022-04-12] MEDS: LISINOPRIL 20 MG TABLET PO SCH (21:17)
[2022-04-12] MEDS ORDERED: ACETAMINOPHEN 325 MG TABLET (FP) PO ONE (21:51)
[2022-04-13] MEDS: oxyCODONE HCL 5 MG TABLET PO SCH ×3 (00:35→12:15)
[2022-04-13] MEDS: GABAPENTIN 300 MG CAPSULE PO SCH ×2 (06:35→13:31)
[2022-04-13] MEDS: PREGABALIN 50 MG CAPSULE PO SCH ×2 (06:36→13:30)
[2022-04-13] MEDS: LEVOTHYROXINE NA 50 MCG TABLET (FP) PO SCH (06:36)
[2022-04-13 07:04] VITALS: RESP 18
[2022-04-13 09:13] LABS: ALBUMIN 3.2 g/dl (3.4-5.0); BILIRUBIN,TOTAL 1.3 mg/dl (0.2-1); CALCIUM 8.3 mg/dl (8.5-10); CREATININE 0.8 mg/dl (0.55-1.3); TOT PROT 6.7 g/dl (6.4-8.2)
[2022-04-13 09:22] VITALS: BP 119/53; PULSE 85; TEMP 99.5
[2022-04-13] MEDS: BACLOFEN 10 MG TABLET (FP) PO SCH (09:29)
[2022-04-13] MEDS: TAMSULOSIN HCL 0.4 MG CAP PO SCH (09:29)
[2022-04-13] MEDS: CELECOXIB 100 MG CAPSULE PO SCH (09:29)
[2022-04-13] MEDS: MULTIVITAMINS (DAILY MVI) TABLET (FP) PO SCH (09:29)
[2022-04-13] MEDS: ASPIRIN COATED 81 MG TABLET.EC PO SCH (09:29)
[2022-04-13] MEDS: SENNOSIDES/DOCUSATE COMBO (SENNA PLUS) TABLET (UD) PO SCH (09:29)
[2022-04-13] MEDS: PATIENT'S OWN MEDICATION (NON-FORMULARY) (Dexlansoprazole [Dexilant] 60 MG Cap.Dr.Bp) PO SCH (09:32)
[2022-04-13 09:35] LABS: BASO % 0.3 % (0-2.0); EOS % 0.2 % (0-4.5); HEMATOCRIT 32.4 % (35.4-49); LYMPH % 12.1 % (8-40); MCH 29.6 pg (25.7-33.7); MCHC 33.9 g/dl (32.0-35.9); MEAN CELL VOLUME 87.5 fl (80-96); MEAN PLT VOLUME 9.9 fl (7.5-11.1); MONO % 10.3 % (3.8-10.2); NEUT % 77.1 % (42.8-82.8); PLATELET COUNT 170 10^3/uL (134-434); RBC 3.71 M/mm3 (4.00-5.60); RDW 14.1 % (11.9-15.9); WHITE BLOOD COUNT 10.5 K/mm3 (4.0-10.0)
== END 2022-04-13 14:09 | disposition home or self-care (01) ==
LOC: FASU 08:50 → FM/S 17:11 → FASU 04-13 14:09
PROVIDERS: ATTEND Orthopaedic Surgery Orthopaedic Surgery of the Spine
PROC: 0SR90JA Replacement of Right Hip Joint with Synthetic Substitute, Uncemented, Open Approach (ICD-10-PCS; principal; 2022-04-11 12:59)
DX: M16.11 Unilateral primary osteoarthritis, right hip (principal); M24.651 Ankylosis, right hip
CPT/HCPCS: 27130; C1776; 36415; 71045-TC-FY; 73502-TC-RT-FY; 80048; 80053; 85025; 85027; 85610; 86922; 87804; 88305-TC; 88311-TC; 94760; 97010-GP; 97116-GP; 97163-GP; C9803-CS; J0475; U0003; U0005